=== PATIENT | female | born 1975 | race Caucasian/White ===

== ENCOUNTER 2020-04-19 13:20 | Emergency (ER) | payer BC, OTHER ==
--- NOTE | 2020-04-19 13:20 | EDM.PDOC ---
"ED HPI GENERAL MEDICAL PROBLEM - General Chief Complaint: Abdominal Pain Stated Complaint: AMBULANCE Time Seen by Provider: 04/19/20 13:20 Source of Information: Reports: Patient, EMS, Old Records, RN, RN Notes Reviewed History Limitations: Reports: No Limitations - History of Present Illness INITIAL COMMENTS - FREE TEXT/NARRATIVE: Pt arrives to ER by ambulance with c/o severe upper abdominal pain and vomiting. Pt states she went to clinic this past week for abdominal pain, but it was not nearly this bad. She understands the clinic found a mild elevation of her liver enzymes, low potassium, and constipation. Pt denies fever. The pain is all over the abdomen now, but seems to be worse and coming from the epigastric region. The pain radiates straight through to her back. She rates the pain 10/10. Nothing alleviates the pain. Eating makes the pain and nausea/vomiting much worse. She denies fever, cough, chest pain, or diarrhea. No known COVID exposures. Hx of , no other abdominal surgical history. Onset: Gradual Duration: Day(s): (3-4), Constant, Getting Worse, Waxing/Waning Location: Reports: Abdomen Quality: Reports: Ache Severity: Severe Associated Symptoms: Reports: No Other Symptoms Abdominal Pain Score (Numeric/FACES): 10 - Related Data Allergies Allergy/AdvReac Type Severity Reaction Status Date / Time amoxicillin Allergy Rash Verified 04/19/20 13:27 codeine Allergy Other Verified 04/19/20 13:27 Penicillins Allergy Rash Verified 04/19/20 13:27 prednisone Allergy Rash Verified 04/19/20 13:27 Home Meds: Home Meds Amphetamine Sulfate 30 mg PO DAILY 04/19/20 [History] Gabapentin [Neurontin] 100 mg PO BID 04/19/20 [History] Loratadine/Pseudoephedrine [Allergy Relief D 12-Hour Tab] 1 each PO DAILY 04/19/20 [History] Past Medical History HEENT History: Reports: Allergic Rhinitis Psychiatric History: Reports: Depression Endocrine/Metabolic History: Reports: Obesity/BMI 30+ Social & Family History - Family History Family Medical History: Noncontributory - Alcohol Use Alcohol Use History: Yes Alcohol Use Frequency: Rarely ED ROS GENERAL - Review of Systems Review Of Systems: Comprehensive ROS is negative, except as noted in HPI. ED EXAM, GI/ABD - Physical Exam Exam: See Below General Appearance: Alert, Mild Distress (due to pain), Obese Eyes: Bilateral: Normal Appearance (No scleral icterus.) Nose: Normal Inspection, Normal Mucosa, No Blood Throat/Mouth: Normal Inspection, Normal Lips, Normal Teeth, Normal Gums, Normal Oropharynx, Normal Voice, No Airway Compromise Head: Atraumatic, Normocephalic Neck: Normal Inspection, Supple, Non-Tender, Full Range of Motion Respiratory/Chest: No Respiratory Distress, Lungs Clear, Normal Breath Sounds, No Accessory Muscle Use, Chest Non-Tender Cardiovascular: Regular Rate, Rhythm, No Edema GI/Abdominal Exam: No Organomegaly, No Distention, No Abnormal Bruit, No Mass, Tender (Generalized tenderness, focally worse at epigastric region), Abnormal Bowel Sounds (Hypoactive bowel sounds.). No: Guarding, Rigid (firm, obese abdomen but not rigid.) (Female) Exam: Deferred Rectal (Female) Exam: Deferred Back Exam: Normal Inspection Extremities: Normal Inspection Neurological: Alert, Oriented, Normal Cognition, No Motor/Sensory Deficits Psychiatric: Anxious Skin Exam: Warm, Dry, Intact, Normal Color, No Rash. No: Ecchymosis, Jaundice, Petechiae, Rash Course - Vital Signs Last Recorded V/S: Last Vital Signs Temp 99 F 04/19/20 13:20 Pulse 118 H 04/19/20 13:20 Resp 20 04/19/20 13:20 BP 116/66 04/19/20 13:20 Pulse Ox 95 04/19/20 13:20 - Orders/Labs/Meds Orders: Active Orders 24 hr Category Date Time Status Peripheral IV Care [RC] . DIRECTED Care 04/19/20 13:25 Active Sodium Chloride 0.9% [Normal Saline] 1,000 ml Med 04/19/20 16:00 Active IV ASDIRECTED Sodium Chloride 0.9% [Saline Flush] Med 04/19/20 13:25 Active 10 ml FLUSH ASDIRECTED PRN Peripheral IV Insertion Pediatric [OM.PC] Stat Oth 04/19/20 13:25 Ordered Medication Orders Sodium Chloride (Normal Saline) 1,000 mls @ 150 mls/hr IV ASDIRECTED DIONICIO Sodium Chloride (Saline Flush) 10 ml FLUSH ASDIRECTED PRN PRN Reason: Keep Vein Open Last Admin: 04/19/20 13:38 Dose: 10 ml Documented by: WENDI Labs: Laboratory Tests 04/19/20 04/19/20 04/19/20 Range/Units 13:37 13:37 13:37 WBC 21.2 H (5.0-10.0) 10^3/uL RBC 4.55 (4.2-5.4) 10^6/uL Hgb 12.6 (12.0-16.0) g/dL Hct 38.4 (37.0-47.0) % MCV 84.4 (80-100) fL MCH 27.7 (27.0-34.0) pg MCHC 32.8 L (33.0-35.0) g/dL Plt Count 278 (150-450) 10^3/uL Neut % (Auto) 93.1 H (42.2-75.2) % Lymph % (Auto) 2.9 L (20.5-50.1) % [place] % (Auto) 3.9 (2-8) % Eos % (Auto) 0.0 L (1.0-3.0) % Baso % (Auto) 0.1 (0.0-1.0) % Sodium 138 (136-145) mmol/L Potassium 3.2 L (3.5-5.1) mmol/L Chloride 97 L (98-107) mmol/L Carbon Dioxide 29 (21-32) mmol/L Anion Gap 15.2 H (7-13) mEq/L BUN 8 (7-18) mg/dL Creatinine 0.80 (0.55-1.02) mg/dL Est Cr Clr Drug Dosing 70.98 mL/min Estimated GFR (MDRD) > 60 BUN/Creatinine Ratio 10.0 (No establ ref range) Glucose 121 H (74-99) mg/dL Lactic Acid 1.5 (0.4-2.0) mmol/L Calcium 9.1 (8.5-10.1) mg/dL Total Bilirubin 2.7 H (0.2-1.0) mg/dL AST 623 H (15-37) U/L ALT 419 H (14-59) U/L Alkaline Phosphatase 234 H (46-116) U/L Total Protein 7.3 (6.4-8.2) g/dL Albumin 3.5 (3.4-5.0) g/dL Globulin 3.8 Albumin/Globulin Ratio 0.9 Amylase 1088 H (25-115) U/L Lipase 50247 H (73-393) U/L HCG, Qual Negative Meds: Medications Generic Name Dose Route Start Last Admin Trade Name Richard PRN Reason Stop Dose Admin Sodium Chloride 1,000 mls @ 150 mls/hr 04/19/20 16:00 Normal Saline IV ASDIRECTED DIONICIO Sodium Chloride 10 ml 04/19/20 13:25 04/19/20 13:38 Saline Flush FLUSH 10 ml ASDIRECTED PRN Administration Keep Vein Open Discontinued Medications Generic Name Dose Route Start Last Admin Trade Name Freq PRN Reason Stop Dose Admin Hydromorphone HCl 1 mg 04/19/20 15:56 Dilaudid IVPUSH 04/19/20 15:57 ONETIME ONE Sodium Chloride 1,000 mls @ 999 mls/hr 04/19/20 13:26 04/19/20 15:09 Normal Saline IV 04/19/20 14:26 Infused .BOLUS ONE Infusion Ciprofloxacin/Dextrose 400 mg/ 200 mls @ 200 mls/hr 04/19/20 14:10 04/19/20 15:10 Premix IV 04/19/20 15:09 200 mls/hr ONETIME ONE Administration Metronidazole 500 mg/ Premix 100 mls @ 100 mls/hr 04/19/20 14:10 04/19/20 15:10 IV 04/19/20 15:09 100 mls/hr ONETIME ONE Administration Iopamidol 100 ml 04/19/20 14:08 04/19/20 15:06 Isovue-300 (61%) IVPUSH 04/19/20 14:09 100 ml ONETIME ONE Administration Ketorolac Tromethamine 30 mg 04/19/20 13:26 04/19/20 13:39 Toradol IVPUSH 04/19/20 13:27 30 mg ONETIME ONE Administration Ondansetron HCl 4 mg 04/19/20 13:26 04/19/20 13:39 Zofran IV 04/19/20 13:27 4 mg ONETIME ONE Administration Ondansetron HCl 4 mg 04/19/20 15:56 Zofran IV 04/19/20 15:57 ONETIME ONE - Radiology Interpretation Free Text/Narrative:: [facility] Final Radiology Report Call: [phone] assistance Online chat: [email or web address] Name: BEE MCMAHON Age: 44Years F Date: 04/19/2020 SSN: -- : [id number] Study: CT ABDOMEN PELVIS W CONT Requesting Physician: JAIR CINTRON Images: [id number] Addl Studies: Provided Clinical History: Generalized abdominal pain w/distention Contrast: With Contrast Medium: Isovue 300 Contrast Amount: 100 mL Contrast Method: Intravenous (IV) Page 1 of 2 PROCEDURE INFORMATION: Exam: CT Abdomen And Pelvis With Contrast Exam date and time: 04/19/2020 2:38 PM Age: 44 years old Clinical indication: Abdominal pain; Generalized; Additional info: Generalized abdominal pain w/distention TECHNIQUE: Imaging protocol: Computed tomography of the abdomen and pelvis with intravenous contrast. Radiation optimization: All CT scans at this facility use at least one of these dose optimization techniques: automated exposure control; mA and/or kV adjustment per patient size (includes targeted exams where dose is matched to clinical indication); or iterative reconstruction. Contrast material: ISOVUE 300; Contrast volume: 100 ml; Contrast route: INTRAVENOUS (IV); COMPARISON: No relevant prior studies available. FINDINGS: Liver: The liver demonstrates diffuse decreased attenuation compatible with fatty change. Gallbladder and bile ducts: Common bile duct appears to be mildly prominent measuring approximately 9 mm. No radiopaque stones are identified. Pancreas: There is moderate grade peripancreatic fat stranding with fluid extending along the lateral gutters bilaterally. Finding is compatible with moderate grade pancreatitis. No pseudocyst is currently identified. Spleen: Normal. No splenomegaly. Adrenal glands: Normal. No mass. Kidneys and ureters: Normal. No hydronephrosis. Stomach and bowel: Scattered colonic diverticula are present. There is no evidence for active diverticulitis. Appendix: No evidence of appendicitis. BEE MCMAHON | Final Radiology Report CONFIDENTIALITY STATEMENT This report is intended only for use by the referring physician, and only in accordance with law. If you received this in error, call [phone]. Page 2 of 2 Intraperitoneal space: Unremarkable. No free air. No significant fluid collection. Vasculature: Unremarkable. No abdominal aortic aneurysm. Lymph nodes: Unremarkable. No enlarged lymph nodes. Urinary bladder: Unremarkable as visualized. Reproductive: Unremarkable as visualized. Bones/joints: Unremarkable. No acute fracture. Soft tissues: Unremarkable. IMPRESSION: 1. Findings are compatible with moderate grade pancreatitis. 2. Mild enlargement of the common bile duct. No radiopaque stone identified. Thank you for allowing us to participate in the care of your patient. Dictated and Authenticated by: Dorian Loving MD 04/19/2020 3:13 PM Central Time ([place] & [place]) - Re-Assessments/Exams Free Text/Narrative Re-Assessment/Exam: 04/19/20 16:09 No US avail. in house at this time. Departure - Departure Time of Disposition: 15:46 Disposition: DC/Tfer to [facility] 02 Condition: Serious Clinical Impression: Elevated liver enzymes, Common bile duct dilatation Acute pancreatitis Qualifiers: Pancreatitis type: unspecified pancreatitis type Acute pancreatitis complication: unspecified Qualified Code(s): K85.90 - Acute pancreatitis without necrosis or infection, unspecified - Discharge Information *PRESCRIPTION DRUG MONITORING PROGRAM REVIEWED*: Not Applicable *COPY OF PRESCRIPTION DRUG MONITORING REPORT IN PATIENT KIMBERLY: Not Applicable Forms: ED Department Discharge, Interfacility Transfer EMTALA Sepsis Event Note (ED) - Focused Exam Vital Signs: Vital Signs Temp Pulse Resp BP Pulse Ox 04/19/20 13:20 99 F 118 H 20 116/66 95 - My Orders Last 24 Hours: My Active Orders 04/19/20 13:25 Peripheral IV Care [RC] . DIRECTED Sodium Chloride 0.9% [Saline Flush] 10 ml FLUSH ASDIRECTED PRN Peripheral IV Insertion Pediatric [OM.PC] Stat 04/19/20 16:00 Sodium Chloride 0.9% [Normal Saline] 1,000 ml IV ASDIRECTED - Assessment/Plan Last 24 Hours: My Active Orders 04/19/20 13:25 Peripheral IV Care [RC] . DIRECTED Sodium Chloride 0.9% [Saline Flush] 10 ml FLUSH ASDIRECTED PRN Peripheral IV Insertion Pediatric [OM.PC] Stat 04/19/20 16:00 Sodium Chloride 0.9% [Normal Saline] 1,000 ml IV ASDIRECTED"
[2020-04-19] MEDS ORDERED: Ondansetron 4 MG/2 ML SDV IV ONE ×2 (13:26→15:56)
[2020-04-19] MEDS ORDERED: Ketorolac 30 MG/ML SDV IVPUSH ONE (13:26)
[2020-04-19] MEDS ORDERED: Sodium Chloride 0.9% 1,000 ML IV ONE (13:26)
[2020-04-19] MEDS: Sodium Chloride 0.9% 10 ML Syringe FLUSH PRN ×2 (13:38→16:06)
[2020-04-19] MEDS ORDERED: Iopamidol 612 MG/ML 100 ML Bottle IVPUSH ONE (14:08)
[2020-04-19] MEDS ORDERED: Ciprofloxacin in D5W 400 MG in Premix Bag 1 BAG IV ONE ×2 (14:10)
[2020-04-19] MEDS ORDERED: metroNIDAZOLE/Normal Saline 500 MG in Premix Bag 100 BAG IV ONE (14:10)
[2020-04-19 14:11] LABS: ANION GAP 15.2 mEq/L (7-13); CHLORIDE,CL 97 mmol/L (98-107); SODIUM,NA 138 mmol/L (136-145)
--- NOTE | 2020-04-19 15:14 | CT ---
PROCEDURE INFORMATION: Exam: CT Abdomen And Pelvis With Contrast Exam date and time: 04/19/2020 2:38 PM Age: 44 years old Clinical indication: Abdominal pain; Generalized; Additional info: Generalized abdominal pain w/distention TECHNIQUE: Imaging protocol: Computed tomography of the abdomen and pelvis with intravenous contrast. Radiation optimization: All CT scans at this facility use at least one of these dose optimization techniques: automated exposure control; mA and/or kV adjustment per patient size (includes targeted exams where dose is matched to clinical indication); or iterative reconstruction. Contrast material: ISOVUE 300; Contrast volume: 100 ml; Contrast route: INTRAVENOUS (IV); COMPARISON: No relevant prior studies available. FINDINGS: Liver: The liver demonstrates diffuse decreased attenuation compatible with fatty change. Gallbladder and bile ducts: Common bile duct appears to be mildly prominent measuring approximately 9 mm. No radiopaque stones are identified. Pancreas: There is moderate grade peripancreatic fat stranding with fluid extending along the lateral gutters bilaterally. Finding is compatible with moderate grade pancreatitis. No pseudocyst is currently identified. Spleen: Normal. No splenomegaly. Adrenal glands: Normal. No mass. Kidneys and ureters: Normal. No hydronephrosis. Stomach and bowel: Scattered colonic diverticula are present. There is no evidence for active diverticulitis. Appendix: No evidence of appendicitis. Intraperitoneal space: Unremarkable. No free air. No significant fluid collection. Vasculature: Unremarkable. No abdominal aortic aneurysm. Lymph nodes: Unremarkable. No enlarged lymph nodes. Urinary bladder: Unremarkable as visualized. Reproductive: Unremarkable as visualized. Bones/joints: Unremarkable. No acute fracture. Soft tissues: Unremarkable. IMPRESSION: 1. Findings are compatible with moderate grade pancreatitis. 2. Mild enlargement of the common bile duct. No radiopaque stone identified.
[2020-04-19] MEDS ORDERED: HYDROmorphone 1 MG/ML Syringe IVPUSH ONE ×2 (15:56→17:54)
[2020-04-19] MEDS ORDERED: Sodium Chloride 0.9% 1,000 ML IV SCH (16:00)
== END 2020-04-19 18:24 ==
LOC: DL.ED 13:20
DX: K85.90 Acute pancreatitis without necrosis or infection, unspecified (principal); E66.9 Obesity, unspecified; Z68.41 Body mass index [BMI] 40.0-44.9, adult; R74.8 Abnormal levels of other serum enzymes; K83.8 Other specified diseases of biliary tract; Z88.5 Allergy status to narcotic agent; Z88.1 Allergy status to other antibiotic agents; Z88.8 Allergy status to other drugs, medicaments and biological substances; Z88.0 Allergy status to penicillin
CPT/HCPCS: 36415; 74177; 80053; 81001; 82150; 83605; 83690; 84703; 85025; 96365; 96368; 96375; 96376; 99283; 99285; J0744; J1170; J1885; J2405; J3490; J7030; Q9967

== ENCOUNTER 2021-03-22 13:57 | Emergency (ER) | payer BC ==
[2021-03-22] MEDS ORDERED: Sodium Chloride 0.9% 10 ML Syringe FLUSH PRN (16:01)
[2021-03-22] MEDS ORDERED: Sodium Chloride 0.9% 1,000 ML IV ONE (16:10)
[2021-03-22] MEDS ORDERED: Ondansetron 4 MG/2 ML SDV IVPUSH ONE ×2 (16:11→18:15)
[2021-03-22 16:50] LABS: ANION GAP 15.7 mEq/L (7-13); CHLORIDE,CL 104 mmol/L (98-107); SODIUM,NA 140 mmol/L (136-145)
[2021-03-22 17:52] LABS: CORONAVIRUS COVID-19 NAA POSITIVE (NEGATIVE)
--- NOTE | 2021-03-22 18:11 | EDM.PDOC ---
ED HPI GENERAL MEDICAL PROBLEM - General Chief Complaint: Gastrointestinal Problem Stated Complaint: VOMITING / FEVER Time Seen by Provider: 03/22/21 16:00 Source of Information: Reports: Patient History Limitations: Reports: No Limitations - History of Present Illness INITIAL COMMENTS - FREE TEXT/NARRATIVE: 45 y/o F Patient presents with a 2 day history of vomiting and a 5 day history of intermittent fevers. On arrival, patient nauseated and diaphoretic, 100 mL emesis. She states she has not been bale to keep anything down for the past several days. She denies vision prob, db, cp, abd pn, pelivc pn, diff voiding, extremity pn. Onset: Gradual Duration: Day(s): generalized Pain Score (Numeric/FACES): 8 - Related Data Allergies Allergy/AdvReac Type Severity Reaction Status Date / Time amoxicillin Allergy Rash Verified 03/22/21 15:49 codeine Allergy Other Verified 03/22/21 15:49 Penicillins Allergy Rash Verified 03/22/21 15:49 prednisone Allergy Rash Verified 03/22/21 15:49 Home Meds: Home Meds Amphetamine Sulfate 30 mg PO BID 04/19/20 [History] Gabapentin [Neurontin] 200 mg PO DAILY 04/19/20 [History] Loratadine/Pseudoephedrine [Allergy Relief D 12-Hour Tab] 1 each PO DAILY 04/19/20 [History] Vortioxetine Hydrobromide [Brintellix] 10 mg PO DAILY 03/22/21 [History] buPROPion HCL [Bupropion Xl] 300 mg PO DAILY 03/22/21 [History] Past Medical History HEENT History: Reports: Allergic Rhinitis Cardiovascular History: Reports: None Respiratory History: Reports: None Gastrointestinal History: Reports: None Genitourinary History: Reports: None B[employer]ING [employer]OL[employer] MACHINE History: Reports: Musculoskeletal History: Reports: None Neurological History: Reports: Neuropathy, Peripheral Psychiatric History: Reports: Anxiety, Depression Endocrine/Metabolic History: Reports: Obesity/BMI 30+ Hematologic History: Reports: None Immunologic History: Reports: None Oncologic (Cancer) History: Reports: None Dermatologic History: Reports: None - Infectious Disease History Infectious Disease History: Reports: None Social & Family History - Family History Family Medical History: No Pertinent Family History - Tobacco Use Tobacco Use Status *Q: Current Every Day Tobacco User Years of Tobacco use: 20 Packs/Tins Daily: 0.5 - Caffeine Use Caffeine Use: Reports: Coffee - Recreational Drug Use Recreational Drug Use: No ED ROS GENERAL - Review of Systems Review Of Systems: Comprehensive ROS is negative, except as noted in HPI. ED EXAM, GI/ABD - Physical Exam Exam: See Below Exam Limited By: No Limitations General Appearance: Alert, Other (appears dehydrated) Ears: Normal External Exam, Normal Canal, Hearing Grossly Normal, Normal TMs Nose: Normal Inspection, Normal Mucosa, No Blood Throat/Mouth: Normal Inspection, Normal Lips, Normal Teeth, Normal Gums, Normal Oropharynx, Normal Voice, No Airway Compromise Head: Atraumatic, Normocephalic Neck: Normal Inspection, Supple, Non-Tender, Full Range of Motion Respiratory/Chest: No Respiratory Distress, Lungs Clear, Normal Breath Sounds, No Accessory Muscle Use, Chest Non-Tender Cardiovascular: Normal Peripheral Pulses, Regular Rate, Rhythm, No Edema, No Gallop, No JVD, No Murmur, No Rub GI/Abdominal Exam: Normal Bowel Sounds, Soft, Non-Tender, No Organomegaly, No Distention, No Abnormal Bruit, No Mass, Pelvis Stable (Female) Exam: Deferred Rectal (Female) Exam: Deferred Back Exam: Normal Inspection, Full Range of Motion, NT Extremities: Normal Inspection, Normal Range of Motion, Non-Tender, Normal Capillary Refill, No Pedal Edema Neurological: Alert, Oriented, CN II-XII Intact, Normal Cognition, Normal Gait, Normal Reflexes, No Motor/Sensory Deficits Psychiatric: Normal Affect, Normal Mood Course - Vital Signs Last Recorded V/S: Last Vital Signs Temp 96.5 F L 03/22/21 15:41 Pulse 81 03/22/21 15:41 Resp 20 03/22/21 15:41 BP 104/65 03/22/21 15:41 Pulse Ox 95 03/22/21 15:41 - Orders/Labs/Meds Orders: Active Orders 24 hr Category Date Time Status Peripheral IV Care [RC] . DIRECTED Care 03/22/21 16:02 Active CULTURE BLOOD [BC] Stat Lab 03/22/21 16:06 Results CULTURE BLOOD [BC] Stat Lab 03/22/21 16:13 Results HCG QUALITATIVE,URINE [URCHEM] Stat Lab 03/22/21 16:02 Ordered UA RFX BART AND CULT IF INDIC [URIN] Stat Lab 03/22/21 16:02 Ordered Sodium Chloride 0.9% [Saline Flush] Med 03/22/21 16:01 Active 10 ml FLUSH ASDIRECTED PRN Blood Culture x2 Reflex Set [OM.PC] Stat Oth 03/22/21 16:01 Ordered Peripheral IV Insertion Adult [OM.PC] Stat Oth 03/22/21 16:02 Ordered Medication Orders Sodium Chloride (Sodium Chloride 0.9% 10 Ml Syringe) 10 ml FLUSH ASDIRECTED PRN PRN Reason: Keep Vein Open Last Admin: 03/22/21 16:49 Dose: 10 ml Documented by: XIN Labs: Laboratory Tests 03/22/21 03/22/21 03/22/21 Range/Units 16:13 16:13 16:13 WBC 3.1 L (5.0-10.0) 10^3/uL RBC 4.53 (4.2-5.4) 10^6/uL Hgb 12.5 (12.0-16.0) g/dL Hct 38.9 (37.0-47.0) % MCV 85.9 (80-100) fL MCH 27.6 (27.0-34.0) pg MCHC 32.1 L (33.0-35.0) g/dL Plt Count 138 L D (150-450) 10^3/uL Neut % (Auto) 51.7 (42.2-75.2) % Lymph % (Auto) 37.8 (20.5-50.1) % [place] % (Auto) 8.5 H (2-8) % Eos % (Auto) 2.0 (1.0-3.0) % Baso % (Auto) 0.0 (0.0-1.0) % Sodium 140 (136-145) mmol/L Potassium 3.7 (3.5-5.1) mmol/L Chloride 104 (98-107) mmol/L Carbon Dioxide 24 (21-32) mmol/L Anion Gap 15.7 H (7-13) mEq/L BUN 7 (7-18) mg/dL Creatinine 0.84 (0.55-1.02) mg/dL Est Cr Clr Drug Dosing 66.89 mL/min Estimated GFR (MDRD) > 60 BUN/Creatinine Ratio 8.3 (No establ ref range) Glucose 120 H (70-99) mg/dL Lactic Acid 0.9 (0.4-2.0) mmol/L Calcium 7.9 L (8.5-10.1) mg/dL Total Bilirubin 0.2 (0.2-1.0) mg/dL AST 45 H (15-37) U/L ALT 43 (14-59) U/L Alkaline Phosphatase 146 H (46-116) U/L C-Reactive Protein 0.9 (0.0-0.9) mg/dL Total Protein 7.2 (6.4-8.2) g/dL Albumin 3.4 (3.4-5.0) g/dL Globulin 3.8 Albumin/Globulin Ratio 0.9 Amylase 51 (25-115) U/L Lipase 161 (73-393) U/L Influenza Type A RNA (NEGATIVE) Influenza Type B RNA (NEGATIVE) SARS-CoV-2 RNA (JEFF) (NEGATIVE) 03/22/21 Range/Units 17:06 WBC (5.0-10.0) 10^3/uL RBC (4.2-5.4) 10^6/uL Hgb (12.0-16.0) g/dL Hct (37.0-47.0) % MCV (80-100) fL MCH (27.0-34.0) pg MCHC (33.0-35.0) g/dL Plt Count (150-450) 10^3/uL Neut % (Auto) (42.2-75.2) % Lymph % (Auto) (20.5-50.1) % [place] % (Auto) (2-8) % Eos % (Auto) (1.0-3.0) % Baso % (Auto) (0.0-1.0) % Sodium (136-145) mmol/L Potassium (3.5-5.1) mmol/L Chloride (98-107) mmol/L Carbon Dioxide (21-32) mmol/L Anion Gap (7-13) mEq/L BUN (7-18) mg/dL Creatinine (0.55-1.02) mg/dL Est Cr Clr Drug Dosing mL/min Estimated GFR (MDRD) BUN/Creatinine Ratio (No establ ref range) Glucose (70-99) mg/dL Lactic Acid (0.4-2.0) mmol/L Calcium (8.5-10.1) mg/dL Total Bilirubin (0.2-1.0) mg/dL AST (15-37) U/L ALT (14-59) U/L Alkaline Phosphatase (46-116) U/L C-Reactive Protein (0.0-0.9) mg/dL Total Protein (6.4-8.2) g/dL Albumin (3.4-5.0) g/dL Globulin Albumin/Globulin Ratio Amylase (25-115) U/L Lipase (73-393) U/L Influenza Type A RNA Negative (NEGATIVE) Influenza Type B RNA Negative (NEGATIVE) SARS-CoV-2 RNA (JEFF) Positive H (NEGATIVE) Meds: Medications Generic Name Dose Route Start Last Admin Trade Name Freq PRN Reason Stop Dose Admin Sodium Chloride 10 ml 03/22/21 16:01 03/22/21 16:49 Sodium Chloride 0.9% 10 Ml Syringe FLUSH 10 ml ASDIRECTED PRN Administration Keep Vein Open Discontinued Medications Generic Name Dose Route Start Last Admin Trade Name Freq PRN Reason Stop Dose Admin Sodium Chloride 1,000 mls @ 999 mls/hr 03/22/21 16:10 03/22/21 16:48 Normal Saline IV 03/22/21 17:10 999 mls/hr .BOLUS ONE Administration Ondansetron HCl 4 mg 03/22/21 16:11 03/22/21 16:48 Ondansetron 4 Mg/2 Ml Sdv IVPUSH 03/22/21 16:12 4 mg ONETIME ONE Administration Departure - Departure Time of Disposition: 18:09 Disposition: Home, Self-Care 01 Preliminary Cause of *Q: Cardiac Arrest Condition: Good Clinical Impression: COVID-19 - Discharge Information *PRESCRIPTION DRUG MONITORING PROGRAM REVIEWED*: Not Applicable *COPY OF PRESCRIPTION DRUG MONITORING REPORT IN PATIENT KIMBERLY: Not Applicable Instructions: 10 Things You Can Do to Manage Your COVID-19 Symptoms at Home - [facility] [place] (01/02/2021) Additional Instructions: RX: Zofran Isolate for 14 days from the onset of symptoms. Use tylenol and motrin for fever and pain as needed. If any new symptoms or concerns develop contact your primary care clinic or return to the ER. Sepsis Event Note (ED) - Focused Exam Vital Signs: Vital Signs Temp Pulse Resp BP Pulse Ox 03/22/21 15:41 96.5 F L 81 20 104/65 95
== END 2021-03-22 18:30 | disposition home or self-care (01) ==
LOC: DL.ED 13:57
DX: U07.1 COVID-19 (principal); G62.9 Polyneuropathy, unspecified; E66.9 Obesity, unspecified; Z72.0 Tobacco use; Z68.38 Body mass index [BMI] 38.0-38.9, adult; Z88.0 Allergy status to penicillin; Z88.5 Allergy status to narcotic agent; Z88.8 Allergy status to other drugs, medicaments and biological substances
CPT/HCPCS: 0240U; 36415; 80053; 81001; 81025; 82150; 83605; 83690; 85025; 86140; 87040; 96374; 99284; J2405; J7030

== ENCOUNTER 2021-03-25 14:25 | Inpatient (IN) | payer BC ==
[2021-03-25] MEDS ORDERED: Ondansetron 4 MG/2 ML SDV IV ONE (15:41)
[2021-03-25] MEDS ORDERED: Sodium Chloride 0.9% 10 ML Syringe FLUSH PRN (15:41)
[2021-03-25] MEDS ORDERED: Atropine/Diphenoxylate 0.025-2.5 MG Tab PO ONE (15:42)
[2021-03-25] MEDS ORDERED: Sodium Chloride 0.9% 1,000 ML IV ONE ×2 (15:42→17:21)
[2021-03-25] MEDS ORDERED: Morphine 4 MG/ML Syringe IVPUSH ONE (15:43)
[2021-03-25] MEDS ORDERED: Promethazine 25 MG/ML SDV IM ONE (16:32)
[2021-03-25 16:39] LABS: ANION GAP 11.2 mEq/L (7-13); CHLORIDE,CL 105 mmol/L (98-107); SODIUM,NA 141 mmol/L (136-145)
[2021-03-25] MEDS ORDERED: Magnesium Sulfate/Water 2 GM in Premix Bag 1 BAG IV ONE (17:19)
[2021-03-25] MEDS ORDERED: Potassium Chloride 10 MEQ in Premix Bag 1 BAG IV ONE (17:19)
[2021-03-25] MEDS ORDERED: Lidocaine 1% 30 ML SDV INJECT ONE (17:20)
[2021-03-25] MEDS ORDERED: Famotidine 20 MG/2 ML SDV IVPUSH ONE (17:21)
--- NOTE | 2021-03-25 17:45 | EDM.PDOC ---
Scribed by Kathie Diop 03/25/21 [id number] for Raad Rene MD ED HPI GENERAL MEDICAL PROBLEM - General Chief Complaint: Gastrointestinal Problem Stated Complaint: COVID - RETURN VISIT Time Seen by Provider: 03/25/21 15:30 Source of Information: Reports: Patient, RN, RN Notes Reviewed History Limitations: Reports: No Limitations - History of Present Illness INITIAL COMMENTS - FREE TEXT/NARRATIVE: Patient presents to ED by POV stating that she was diagnosed with COVID on 03/22/21. She presents with intractable nausea, vomiting and diarrhea, fevers, chills and generalized Body aches. Denies cough or chest pain. She has not been able to keep down her nausea medication or her chronic psychiatric medications. She has a history of pancreatitis, but has not had abdominal pain associated with the nausea and vomiting. Onset: Gradual Duration: Getting Worse Improves with: Reports: None Worsens with: Reports: Eating Associated Symptoms: Reports: No Other Symptoms Abdomen Pain Score (Numeric/FACES): 10 - Related Data Allergies Allergy/AdvReac Type Severity Reaction Status Date / Time amoxicillin Allergy Rash Verified 03/25/21 14:59 codeine Allergy Other Verified 03/25/21 14:59 Penicillins Allergy Rash Verified 03/25/21 14:59 prednisone Allergy Rash Verified 03/25/21 14:59 Home Meds: Home Meds Amphetamine Sulfate 30 mg PO BID 04/19/20 [History] Gabapentin [Neurontin] 200 mg PO DAILY 04/19/20 [History] Loratadine/Pseudoephedrine [Allergy Relief D 12-Hour Tab] 1 each PO DAILY 04/19/20 [History] Vortioxetine Hydrobromide [Brintellix] 10 mg PO DAILY 03/22/21 [History] buPROPion HCL [Bupropion Xl] 300 mg PO DAILY 03/22/21 [History] Past Medical History HEENT History: Reports: Allergic Rhinitis Cardiovascular History: Reports: None Respiratory History: Reports: None Gastrointestinal History: Reports: None Genitourinary History: Reports: None 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: Musculoskeletal History: Reports: None Neurological History: Reports: Neuropathy, Peripheral Psychiatric History: Reports: ADHD, Anxiety, Depression Endocrine/Metabolic History: Reports: Obesity/BMI 30+ Hematologic History: Reports: None Immunologic History: Reports: None Oncologic (Cancer) History: Reports: None Dermatologic History: Reports: None - Infectious Disease History Infectious Disease History: Reports: None Social & Family History - Family History Family Medical History: No Pertinent Family History - Tobacco Use Tobacco Use Status *Q: Current Every Day Tobacco User Years of Tobacco use: 20 Packs/Tins Daily: 1 - Caffeine Use Caffeine Use: Reports: Soda - Recreational Drug Use Recreational Drug Use: No - Living Situation & Occupation Living situation: Reports: with Family ED ROS GENERAL - Review of Systems Review Of Systems: Comprehensive ROS is negative, except as noted in HPI. ED EXAM, GI/ABD - Physical Exam Exam: See Below Exam Limited By: No Limitations General Appearance: Alert, No Apparent Distress, Obese, Other (Ill but non-toxic appearing) Eyes: Bilateral: Normal Appearance (No scleral icterus), EOMI Nose: Normal Inspection Throat/Mouth: Normal Lips, Normal Voice, No Airway Compromise, Other (Dry oral mucosa) Head: Atraumatic, Normocephalic Neck: Normal Inspection, Non-Tender, Full Range of Motion Respiratory/Chest: No Respiratory Distress, Lungs Clear, Normal Breath Sounds, No Accessory Muscle Use, Chest Non-Tender Cardiovascular: Normal Peripheral Pulses, Regular Rate, Rhythm, No Edema GI/Abdominal Exam: Soft, Non-Tender, No Distention, No Abnormal Bruit, No Mass, Pelvis Stable, Abnormal Bowel Sounds (Slightly hyperactive bowel sounds). No: Guarding, Rigid, Rebound (Female) Exam: Deferred Rectal (Female) Exam: Deferred Back Exam: Normal Inspection Extremities: Normal Inspection, Normal Range of Motion, Non-Tender, Normal Capillary Refill, No Pedal Edema Neurological: Alert, Oriented, CN II-XII Intact, Normal Cognition, No Motor/Sensory Deficits Psychiatric: Depressed Mood, Flat Affect Skin Exam: Warm, Dry, Intact, Normal Color, No Rash Course - Vital Signs Last Recorded V/S: Last Vital Signs Temp 95.1 F L 03/25/21 14:55 Pulse 73 03/25/21 14:55 Resp 14 03/25/21 14:55 BP 96/67 03/25/21 15:19 Pulse Ox 93 L 03/25/21 14:55 - Orders/Labs/Meds Orders: Active Orders 24 hr Category Date Time Status Peripheral IV Care [RC] . DIRECTED Care 03/25/21 15:41 Active Magnesium Sulfate/Water [Magnesium Sulfate in Water 2 Med 03/25/21 17:19 Active GM/50 ML] 2 gm Premix Bag 1 bag IV ONETIME Potassium Chloride [KCl in Water 10 MEQ/100 ML] 10 meq Med 03/25/21 17:19 Active Premix Bag 1 bag IV ONETIME Sodium Chloride 0.9% [Normal Saline] 1,000 ml Med 03/25/21 17:21 Active IV .BOLUS Sodium Chloride 0.9% [Saline Flush] Med 03/25/21 15:41 Active 10 ml FLUSH ASDIRECTED PRN Peripheral IV Insertion Adult [OM.PC] Stat Oth 03/25/21 15:41 Ordered Medication Orders Magnesium Sulfate 2 gm/ Premix 50 mls @ 25 mls/hr IV ONETIME ONE Stop: 03/25/21 19:18 Potassium Chloride 10 meq/ (Premix) 100 mls @ 100 mls/hr IV ONETIME ONE Stop: 03/25/21 18:18 Sodium Chloride (Normal Saline) 1,000 mls @ 999 mls/hr IV .BOLUS ONE Stop: 03/25/21 18:21 Sodium Chloride (Sodium Chloride 0.9% 10 Ml Syringe) 10 ml FLUSH ASDIRECTED PRN PRN Reason: Keep Vein Open Labs: Laboratory Tests 03/25/21 03/25/21 03/25/21 Range/Units 16:07 16:07 16:07 WBC 4.3 L (5.0-10.0) 10^3/uL RBC 4.40 (4.2-5.4) 10^6/uL Hgb 12.3 (12.0-16.0) g/dL Hct 37.5 (37.0-47.0) % MCV 85.2 (80-100) fL MCH 28.0 (27.0-34.0) pg MCHC 32.8 L (33.0-35.0) g/dL Plt Count 162 (150-450) 10^3/uL Neut % (Auto) 75.0 (42.2-75.2) % Lymph % (Auto) 20.4 L (20.5-50.1) % [place] % (Auto) 3.9 (2-8) % Eos % (Auto) 0.7 L (1.0-3.0) % Baso % (Auto) 0.0 (0.0-1.0) % Sodium 141 (136-145) mmol/L Potassium 3.2 L (3.5-5.1) mmol/L Chloride 105 (98-107) mmol/L Carbon Dioxide 28 (21-32) mmol/L Anion Gap 11.2 (7-13) mEq/L BUN 11 (7-18) mg/dL Creatinine 0.89 (0.55-1.02) mg/dL Est Cr Clr Drug Dosing 74.73 mL/min Estimated GFR (MDRD) > 60 BUN/Creatinine Ratio 12.4 (No establ ref range) Glucose 102 H (70-99) mg/dL Lactic Acid 1.0 (0.4-2.0) mmol/L Calcium 7.9 L (8.5-10.1) mg/dL Magnesium 1.6 L (1.8-2.4) mg/dL Total Bilirubin 0.2 (0.2-1.0) mg/dL AST 92 H (15-37) U/L ALT 77 H (14-59) U/L Alkaline Phosphatase 156 H (46-116) U/L C-Reactive Protein 3.9 H (0.0-0.9) mg/dL Total Protein 6.7 (6.4-8.2) g/dL Albumin 3.2 L (3.4-5.0) g/dL Globulin 3.5 Albumin/Globulin Ratio 0.91 Amylase 46 (25-115) U/L Lipase 115 (73-393) U/L Meds: Medications Generic Name Dose Route Start Last Admin Trade Name Freq PRN Reason Stop Dose Admin Magnesium Sulfate 2 gm/ Premix 50 mls @ 25 mls/hr 03/25/21 17:19 IV 03/25/21 19:18 ONETIME ONE Potassium Chloride 10 meq/ 100 mls @ 100 mls/hr 03/25/21 17:19 Premix IV 03/25/21 18:18 ONETIME ONE Sodium Chloride 1,000 mls @ 999 mls/hr 03/25/21 17:21 Normal Saline IV 03/25/21 18:21 .BOLUS ONE Sodium Chloride 10 ml 03/25/21 15:41 Sodium Chloride 0.9% 10 Ml Syringe FLUSH ASDIRECTED PRN Keep Vein Open Discontinued Medications Generic Name Dose Route Start Last Admin Trade Name Freq PRN Reason Stop Dose Admin Diphenoxylate HCl/Atropine 2 tab 03/25/21 15:42 03/25/21 17:23 Atropine/Diphenoxylate 0.025-2.5 Mg Tab PO 03/25/21 15:43 2 tab ONETIME ONE Administration Famotidine 20 mg 03/25/21 17:21 Famotidine 20 Mg/2 Ml Sdv IVPUSH 03/25/21 17:22 ONETIME ONE Sodium Chloride 1,000 mls @ 999 mls/hr 03/25/21 15:42 03/25/21 17:20 Normal Saline IV 03/25/21 16:42 999 mls/hr .BOLUS ONE Administration Lidocaine HCl 1 ml 03/25/21 17:20 Lidocaine 1% 30 Ml Sdv INJECT 03/25/21 17:21 ONETIME ONE Morphine Sulfate 4 mg 03/25/21 15:43 03/25/21 17:20 Morphine 4 Mg/Ml Syringe IVPUSH 03/25/21 15:44 4 mg ONETIME ONE Administration Ondansetron HCl 8 mg 03/25/21 15:41 03/25/21 17:22 Ondansetron 4 Mg/2 Ml Sdv IV 03/25/21 15:42 8 mg ONETIME ONE Administration Departure - Departure Time of Disposition: 17:44 (admitted to Dr. Franklin) Disposition: Refer to Observation Condition: Fair Clinical Impression: COVID-19 virus infection, Nausea, vomiting, and diarrhea, Dehydration, Hypomagnesemia, Hypokalemia - Discharge Information *PRESCRIPTION DRUG MONITORING PROGRAM REVIEWED*: No *COPY OF PRESCRIPTION DRUG MONITORING REPORT IN PATIENT KIMBERLY: No Forms: ED Department Discharge Sepsis Event Note (ED) - Focused Exam Vital Signs: Vital Signs Temp Pulse Resp BP Pulse Ox 03/25/21 15:19 96/67 03/25/21 14:55 95.1 F L 73 14 78/39 L 93 L - My Orders Last 24 Hours: My Active Orders 03/25/21 15:41 Peripheral IV Care [RC] . DIRECTED Sodium Chloride 0.9% [Saline Flush] 10 ml FLUSH ASDIRECTED PRN Peripheral IV Insertion Adult [OM.PC] Stat 03/25/21 17:19 Magnesium Sulfate/Water [Magnesium Sulfate in Water 2 GM/50 ML] 2 gm Premix Bag 1 bag IV ONETIME Potassium Chloride [KCl in Water 10 MEQ/100 ML] 10 meq Premix Bag 1 bag IV ONETIME 03/25/21 17:21 Sodium Chloride 0.9% [Normal Saline] 1,000 ml IV .BOLUS - Assessment/Plan Last 24 Hours: My Active Orders 03/25/21 15:41 Peripheral IV Care [RC] . DIRECTED Sodium Chloride 0.9% [Saline Flush] 10 ml FLUSH ASDIRECTED PRN Peripheral IV Insertion Adult [OM.PC] Stat 03/25/21 17:19 Magnesium Sulfate/Water [Magnesium Sulfate in Water 2 GM/50 ML] 2 gm Premix Bag 1 bag IV ONETIME Potassium Chloride [KCl in Water 10 MEQ/100 ML] 10 meq Premix Bag 1 bag IV ONETIME 03/25/21 17:21 Sodium Chloride 0.9% [Normal Saline] 1,000 ml IV .BOLUS I have read and agree with the documentation that has been completed regarding this visit. By signing this record, I attest that the documentation was completed in my physical presence and is an accurate record of the encounter.
--- NOTE | 2021-03-25 19:19 | PCM.HP ---
H&P History of Present Illness - General Date of Service: 03/25/21 Admit Problem/Dx: Admission Diagnosis/Problem Admission Diagnosis/Problem Vomiting Source of Information: Patient, Provider (ER) History Limitations: Reports: No Limitations - History of Present Illness Initial Comments - Free Text/Narative: Patient presents to ED stating that she was diagnosed with COVID on 03/22/21. She presents with intractable nausea, vomiting and diarrhea, fevers, chills and generalized Body aches. Denies cough or chest pain. She has not been able to keep down her nausea medication or her chronic psychiatric medications. She has a history of pancreatitis, but has not had abdominal pain associated with the nausea and vomiting. reports h/o cholecystectomy 2 weeks ago. Duration of Symptoms: Reports: Day(s): Abdomen Pain Score (Numeric/FACES): 10 - Related Data Allergies/Adverse Reactions: Allergies Allergy/AdvReac Type Severity Reaction Status Date / Time amoxicillin Allergy Rash Verified 03/25/21 14:59 codeine Allergy Other Verified 03/25/21 14:59 Penicillins Allergy Rash Verified 03/25/21 14:59 prednisone Allergy Rash Verified 03/25/21 14:59 Home Medications: Home Meds Amphetamine Sulfate 30 mg PO BID 04/19/20 [History] Gabapentin [Neurontin] 200 mg PO DAILY 04/19/20 [History] Loratadine/Pseudoephedrine [Allergy Relief D 12-Hour Tab] 1 each PO DAILY 04/19/20 [History] Vortioxetine Hydrobromide [Brintellix] 10 mg PO DAILY 03/22/21 [History] buPROPion HCL [Bupropion Xl] 300 mg PO DAILY 03/22/21 [History] Past Medical History HEENT History: Reports: Allergic Rhinitis Cardiovascular History: Reports: None Respiratory History: Reports: None Gastrointestinal History: Reports: None Genitourinary History: Reports: None 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: Musculoskeletal History: Reports: None Neurological History: Reports: Neuropathy, Peripheral Psychiatric History: Reports: ADHD, Anxiety, Depression Endocrine/Metabolic History: Reports: Obesity/BMI 30+ Hematologic History: Reports: None Immunologic History: Reports: None Oncologic (Cancer) History: Reports: None Dermatologic History: Reports: None - Infectious Disease History Infectious Disease History: Reports: None Social & Family History - Family History Family Medical History: No Pertinent Family History - Tobacco Use Tobacco Use Status *Q: Current Every Day Tobacco User Years of Tobacco use: 20 Packs/Tins Daily: 1 - Caffeine Use Caffeine Use: Reports: Soda - Recreational Drug Use Recreational Drug Use: No - Living Situation & Occupation Living situation: Reports: with Family H&P Review of Systems - Review of Systems: Review Of Systems: Comprehensive ROS is negative, except as noted in HPI. General: Reports: Fever, Chills HEENT: Reports: No Symptoms Pulmonary: Denies: Shortness of Breath, Cough Cardiovascular: Denies: Chest Pain Gastrointestinal: Reports: Diarrhea, Nausea, Vomiting. Denies: Abdominal Pain Skin: Reports: No Symptoms Psychiatric: Reports: No Symptoms Neurological: Reports: No Symptoms Hematologic/Lymphatic: Reports: No Symptoms Exam - Exam Exam: See Below - Vital Signs Vital Signs: Last Vital Signs Temp 95.1 F L 03/25/21 14:55 Pulse 73 03/25/21 14:55 Resp 14 03/25/21 14:55 BP 96/67 03/25/21 15:19 Pulse Ox 93 L 03/25/21 14:55 Weight: 210 lb - Exam Quality Assessment: No: Supplemental Oxygen General: Alert, Oriented HEENT: EOMI Lungs: Clear to Auscultation, Normal Respiratory Effort Cardiovascular: Regular Rate, Regular Rhythm GI/Abdominal Exam: Normal Bowel Sounds, Soft, Non-Tender Back Exam: Normal Inspection Extremities: No Pedal Edema Skin: Warm, Dry Neurological: Cranial Nerves Intact Neuro Extensive - Mental Status: Alert, Oriented x3 Neuro Extensive - Motor, Sensory, Reflexes: CN II-XII Intact Psychiatric: Alert, Normal Affect - Patient Data Lab Results Last 24 hrs: Laboratory Results - last 24 hr 03/25/21 03/25/21 03/25/21 Range/Units 16:07 16:07 16:07 WBC 4.3 L (5.0-10.0) 10^3/uL RBC 4.40 (4.2-5.4) 10^6/uL Hgb 12.3 (12.0-16.0) g/dL Hct 37.5 (37.0-47.0) % MCV 85.2 (80-100) fL MCH 28.0 (27.0-34.0) pg MCHC 32.8 L (33.0-35.0) g/dL Plt Count 162 (150-450) 10^3/uL Neut % (Auto) 75.0 (42.2-75.2) % Lymph % (Auto) 20.4 L (20.5-50.1) % [place] % (Auto) 3.9 (2-8) % Eos % (Auto) 0.7 L (1.0-3.0) % Baso % (Auto) 0.0 (0.0-1.0) % Sodium 141 (136-145) mmol/L Potassium 3.2 L (3.5-5.1) mmol/L Chloride 105 (98-107) mmol/L Carbon Dioxide 28 (21-32) mmol/L Anion Gap 11.2 (7-13) mEq/L BUN 11 (7-18) mg/dL Creatinine 0.89 (0.55-1.02) mg/dL Est Cr Clr Drug Dosing 74.73 mL/min Estimated GFR (MDRD) > 60 BUN/Creatinine Ratio 12.4 (No establ ref range) Glucose 102 H (70-99) mg/dL Lactic Acid 1.0 (0.4-2.0) mmol/L Calcium 7.9 L (8.5-10.1) mg/dL Magnesium 1.6 L (1.8-2.4) mg/dL Total Bilirubin 0.2 (0.2-1.0) mg/dL AST 92 H (15-37) U/L ALT 77 H (14-59) U/L Alkaline Phosphatase 156 H (46-116) U/L C-Reactive Protein 3.9 H (0.0-0.9) mg/dL Total Protein 6.7 (6.4-8.2) g/dL Albumin 3.2 L (3.4-5.0) g/dL Globulin 3.5 Albumin/Globulin Ratio 0.91 Amylase 46 (25-115) U/L Lipase 115 (73-393) U/L Result Diagrams: 03/25/21 16:07 03/25/21 16:07 Problem List Initiated/Reviewed/Updated: Yes Orders Last 24hrs: Active Orders 24 hr Category Date Time Status Admission Diagnosis [ADT] Stat ADT 03/25/21 17:51 Ordered Admission Status [Patient Status] [ADT] Routine ADT 03/25/21 17:51 Active Oxygen Therapy [RC] PRN Care 03/25/21 19:06 Ordered Up ad [place] [RC] ASDIRECTED Care 03/25/21 19:06 Ordered VTE/DVT Education [RC] PER UNIT ROUTINE Care 03/25/21 19:06 Ordered Vital Signs [RC] Q4H Care 03/25/21 19:06 Ordered Clear Liquid Diet [DIET] Diet 03/25/21 Dinner Ordered BASIC METABOLIC PANEL,BMP [CHEM] AM Lab 03/26/21 05:11 Ordered BASIC METABOLIC PANEL,BMP [CHEM] AM Lab 03/27/21 05:11 Ordered BASIC METABOLIC PANEL,BMP [CHEM] AM Lab 03/28/21 05:11 Ordered BASIC METABOLIC PANEL,BMP [CHEM] AM Lab 03/29/21 05:11 Ordered BASIC METABOLIC PANEL,BMP [CHEM] AM Lab 03/30/21 05:11 Ordered CBC WITH AUTO DIFF [HEME] AM Lab 03/26/21 05:11 Ordered CBC WITH AUTO DIFF [HEME] AM Lab 03/27/21 05:11 Ordered CBC WITH AUTO DIFF [HEME] AM Lab 03/28/21 05:11 Ordered CBC WITH AUTO DIFF [HEME] AM Lab 03/29/21 05:11 Ordered CBC WITH AUTO DIFF [HEME] AM Lab 03/30/21 05:11 Ordered Acetaminophen [TylenoL] Med 03/25/21 19:06 Ordered 650 mg PO Q4H PRN Amphetamine Sulfate [Amphetamine Sulfate] Med 03/25/21 21:00 Ordered 30 mg PO BID Enoxaparin [Lovenox] Med 03/25/21 19:15 Ordered 40 mg SUBCUT DAILY Gabapentin [Neurontin] Med 03/26/21 09:00 Ordered 200 mg PO DAILY Lactated Ringers @ 125 MLS/HR(1000ml) Med 03/25/21 19:15 Ordered Lactated Ringers [Ringers, Lactated] 1,000 ml IV ASDIRECTED Loperamide [Imodium] Med 03/25/21 19:10 Ordered 4 mg PO Q6H PRN Loratadine/Pseudoephedrine Med 03/26/21 09:00 Ordered 1 each PO DAILY Magnesium Sulfate/Water [Magnesium Sulfate in Water 2 Med 03/25/21 17:19 Active GM/50 ML] 2 gm Premix Bag 1 bag IV ONETIME Ondansetron [Zofran] Med 03/25/21 19:06 Ordered 4 mg IVPUSH Q6H PRN Sodium Chloride 0.9% [Saline Flush] Med 03/25/21 15:41 Active 10 ml FLUSH ASDIRECTED PRN Vortioxetine Hydrobromide [Trintellix] Med 03/26/21 09:00 Ordered 10 mg PO DAILY buPROPion HCL [Bupropion Xl] Med 03/26/21 09:00 Ordered 300 mg PO DAILY Peripheral IV Insertion Adult [OM.PC] Stat Oth 03/25/21 15:41 Ordered Resuscitation Status Routine Resus Stat 03/25/21 19:06 Ordered Medication Orders Acetaminophen (Acetaminophen 325 Mg Tab) 650 mg PO Q4H PRN PRN Reason: Pain (Mild 1-3)/fever Enoxaparin Sodium (Enoxaparin 40 Mg/0.4 Ml Syringe) 40 mg SUBCUT DAILY DIONICIO Gabapentin (Gabapentin 100 Mg Cap) 200 mg PO DAILY DIONICIO Magnesium Sulfate 2 gm/ Premix 50 mls @ 25 mls/hr IV ONETIME ONE Stop: 03/25/21 19:18 Lactated Ringer's (Ringers, Lactated) 1,000 mls @ 125 mls/hr IV ASDIRECTED DIONICIO Loperamide HCl (Loperamide 2 Mg Cap) 4 mg PO Q6H PRN PRN Reason: Diarrhea Non-Formulary Medication (Amphetamine Sulfate [Amphetamine Sulfate]) 30 mg PO BID DIONICIO Non-Formulary Medication (Bupropion Hcl [Bupropion Xl]) 300 mg PO DAILY DIONICIO Non-Formulary Medication (Loratadine/Pseudoephedrine) 1 each PO DAILY DIONICIO Non-Formulary Medication (Vortioxetine Hydrobromide [Trintellix]) 10 mg PO DAILY DIONICIO Ondansetron HCl (Ondansetron 4 Mg/2 Ml Sdv) 4 mg IVPUSH Q6H PRN PRN Reason: Nausea/Vomiting Sodium Chloride (Sodium Chloride 0.9% 10 Ml Syringe) 10 ml FLUSH ASDIRECTED PRN PRN Reason: Keep Vein Open Assessment/Plan Comment:: intractable symptoms of gastroenteritis due to COVID/ hypovolemia COVID: no respiratory symptoms. IVF fluid and supportive treatment. Depression? : continue home medications. Recent cholecystis; no active issues. DVT prophylaxis with Lovenox
[2021-03-25] MEDS: Enoxaparin 40 MG/0.4 ML Syringe SUBCUT SCH (19:37)
[2021-03-25] MEDS: Lactated Ringers 1,000 ML IV SCH (20:52)
[2021-03-25] MEDS ORDERED: Non-Formulary Medication 1 Each (Amphetamine Sulfate [Amphetamine Sulfate] 10 MG Tablet) PO SCH (21:00)
[2021-03-25] MEDS: Acetaminophen 325 MG Tab PO PRN (22:15)
[2021-03-26] MEDS: Acetaminophen 325 MG Tab PO PRN ×3 (05:02→20:41)
[2021-03-26] MEDS: Lactated Ringers 1,000 ML IV SCH ×3 (05:05→22:00)
[2021-03-26] MEDS: Ondansetron 4 MG/2 ML SDV IVPUSH PRN ×3 (05:06→20:43)
[2021-03-26] MEDS ORDERED: Ibuprofen 400 MG Tab PO PRN (05:19)
[2021-03-26 06:57] LABS: ANION GAP 14.1 mEq/L (7-13); CHLORIDE,CL 103 mmol/L (98-107); SODIUM,NA 138 mmol/L (136-145)
[2021-03-26] MEDS: Enoxaparin 40 MG/0.4 ML Syringe SUBCUT SCH (08:28)
[2021-03-26] MEDS: Gabapentin 100 MG Cap PO SCH (08:28)
[2021-03-26] MEDS: buPROPion 150 MG Tab.ER PO SCH (08:28)
[2021-03-26] MEDS ORDERED: LORATADINE PO SCH (09:00)
[2021-03-26] MEDS ORDERED: Potassium Chloride 10 MEQ Tab.ER PO ONE (09:00)
[2021-03-26] MEDS ORDERED: PSEUDOEPHEDRINE PO SCH (09:00)
[2021-03-26] MEDS: Loperamide 2 MG Cap PO PRN (09:29)
--- NOTE | 2021-03-26 11:38 | PCM.PN ---
- General Info Date of Service: 03/26/21 Functional Status: Denies: Tolerating Diet - Review of Systems General: Denies: Fever Pulmonary: Denies: Shortness of Breath Gastrointestinal: Reports: Diarrhea, Nausea. Denies: Abdominal Pain Genitourinary: Denies: Dysuria Skin: Reports: No Symptoms Neurological: Reports: No Symptoms - Patient Data Vitals - Most Recent: Last Vital Signs Temp 97.7 F 03/26/21 08:00 Pulse 70 03/26/21 08:00 Resp 18 03/26/21 08:00 BP 98/54 L 03/26/21 08:00 Pulse Ox 93 L 03/26/21 08:00 Weight - Most Recent: 210 lb I&O - Last 24 Hours: Intake & Output 03/25/21 03/26/21 03/26/21 22:59 06:59 14:59 Intake Total 400 3585 325 Balance 400 3585 325 Lab Results Last 24 Hours: Laboratory Results - last 24 hr 03/25/21 03/25/21 03/25/21 Range/Units 16:07 16:07 16:07 WBC 4.3 L (5.0-10.0) 10^3/uL RBC 4.40 (4.2-5.4) 10^6/uL Hgb 12.3 (12.0-16.0) g/dL Hct 37.5 (37.0-47.0) % MCV 85.2 (80-100) fL MCH 28.0 (27.0-34.0) pg MCHC 32.8 L (33.0-35.0) g/dL Plt Count 162 (150-450) 10^3/uL Neut % (Auto) 75.0 (42.2-75.2) % Lymph % (Auto) 20.4 L (20.5-50.1) % Dickey % (Auto) 3.9 (2-8) % Eos % (Auto) 0.7 L (1.0-3.0) % Baso % (Auto) 0.0 (0.0-1.0) % Sodium 141 (136-145) mmol/L Potassium 3.2 L (3.5-5.1) mmol/L Chloride 105 (98-107) mmol/L Carbon Dioxide 28 (21-32) mmol/L Anion Gap 11.2 (7-13) mEq/L BUN 11 (7-18) mg/dL Creatinine 0.89 (0.55-1.02) mg/dL Est Cr Clr Drug Dosing 74.73 mL/min Estimated GFR (MDRD) > 60 BUN/Creatinine Ratio 12.4 (No establ ref range) Glucose 102 H (70-99) mg/dL Lactic Acid 1.0 (0.4-2.0) mmol/L Calcium 7.9 L (8.5-10.1) mg/dL Magnesium 1.6 L (1.8-2.4) mg/dL Total Bilirubin 0.2 (0.2-1.0) mg/dL AST 92 H (15-37) U/L ALT 77 H (14-59) U/L Alkaline Phosphatase 156 H (46-116) U/L C-Reactive Protein 3.9 H (0.0-0.9) mg/dL Total Protein 6.7 (6.4-8.2) g/dL Albumin 3.2 L (3.4-5.0) g/dL Globulin 3.5 Albumin/Globulin Ratio 0.91 Amylase 46 (25-115) U/L Lipase 115 (73-393) U/L 03/26/21 03/26/21 Range/Units 06:20 06:20 WBC 3.7 L (5.0-10.0) 10^3/uL RBC 3.66 L (4.2-5.4) 10^6/uL Hgb 10.1 L D (12.0-16.0) g/dL Hct 31.3 L (37.0-47.0) % MCV 85.5 (80-100) fL MCH 27.6 (27.0-34.0) pg MCHC 32.3 L (33.0-35.0) g/dL Plt Count 161 (150-450) 10^3/uL Neut % (Auto) 58.0 (42.2-75.2) % Lymph % (Auto) 33.2 (20.5-50.1) % Dickey % (Auto) 8.3 H (2-8) % Eos % (Auto) 0.5 L (1.0-3.0) % Baso % (Auto) 0.0 (0.0-1.0) % Sodium 138 (136-145) mmol/L Potassium 3.1 L (3.5-5.1) mmol/L Chloride 103 (98-107) mmol/L Carbon Dioxide 24 (21-32) mmol/L Anion Gap 14.1 H (7-13) mEq/L BUN 8 (7-18) mg/dL Creatinine 0.66 (0.55-1.02) mg/dL Est Cr Clr Drug Dosing 100.77 mL/min Estimated GFR (MDRD) > 60 BUN/Creatinine Ratio (No establ ref range) Glucose 97 (70-99) mg/dL Lactic Acid (0.4-2.0) mmol/L Calcium 7.2 L (8.5-10.1) mg/dL Magnesium (1.8-2.4) mg/dL Total Bilirubin (0.2-1.0) mg/dL AST (15-37) U/L ALT (14-59) U/L Alkaline Phosphatase (46-116) U/L C-Reactive Protein (0.0-0.9) mg/dL Total Protein (6.4-8.2) g/dL Albumin (3.4-5.0) g/dL Globulin Albumin/Globulin Ratio Amylase (25-115) U/L Lipase (73-393) U/L Med Orders - Current: Current Medications Acetaminophen (Acetaminophen 325 Mg Tab) 650 mg PO Q4H PRN PRN Reason: Pain (Mild 1-3)/fever Last Admin: 03/26/21 09:37 Dose: 650 mg Documented by: Bupropion HCl (Bupropion 150 Mg Tab.Er) 300 mg PO DAILY [facility] Last Admin: 03/26/21 08:28 Dose: 300 mg Documented by: Enoxaparin Sodium (Enoxaparin 40 Mg/0.4 Ml Syringe) 40 mg SUBCUT DAILY [facility] Last Admin: 03/26/21 08:28 Dose: 40 mg Documented by: Gabapentin (Gabapentin 100 Mg Cap) 200 mg PO DAILY [facility] Last Admin: 03/26/21 08:28 Dose: 200 mg Documented by: Lactated Ringer's (Ringers, Lactated) 1,000 mls @ 125 mls/hr IV ASDIRECTED [facility] Last Admin: 03/26/21 05:05 Dose: 125 mls/hr Documented by: Ibuprofen (Ibuprofen 400 Mg Tab) 400 mg PO Q4H PRN PRN Reason: Pain Loperamide HCl (Loperamide 2 Mg Cap) 4 mg PO Q6H PRN PRN Reason: Diarrhea Last Admin: 03/26/21 09:29 Dose: 4 mg Documented by: Morphine Sulfate (Morphine 4 Mg/Ml Syringe) 4 mg IVPUSH Q6H PRN PRN Reason: Pain (severe 7-10) Non-Formulary Medication (Amphetamine Sulfate [Amphetamine Sulfate]) 30 mg PO BID DIONICIO Non-Formulary Medication (Loratadine/Pseudoephedrine) 1 each PO DAILY DIONICIO Non-Formulary Medication (Vortioxetine Hydrobromide [Trintellix]) 10 mg PO DAILY [facility] Ondansetron HCl (Ondansetron 4 Mg/2 Ml Sdv) 4 mg IVPUSH Q6H PRN PRN Reason: Nausea/Vomiting Last Admin: 03/26/21 05:06 Dose: 4 mg Documented by: Sodium Chloride (Sodium Chloride 0.9% 10 Ml Syringe) 10 ml FLUSH ASDIRECTED PRN PRN Reason: Keep Vein Open Discontinued Medications Diphenoxylate HCl/Atropine (Atropine/Diphenoxylate 0.025-2.5 Mg Tab) 2 tab PO ONETIME ONE Stop: 03/25/21 15:43 Last Admin: 03/25/21 17:23 Dose: 2 tab Documented by: Famotidine (Famotidine 20 Mg/2 Ml Sdv) 20 mg IVPUSH ONETIME ONE Stop: 03/25/21 17:22 Last Admin: 03/25/21 18:00 Dose: 20 mg Documented by: Sodium Chloride (Normal Saline) 1,000 mls @ 999 mls/hr IV .BOLUS ONE Stop: 03/25/21 16:42 Last Admin: 03/25/21 17:20 Dose: 999 mls/hr Documented by: Magnesium Sulfate 2 gm/ Premix 50 mls @ 25 mls/hr IV ONETIME ONE Stop: 03/25/21 19:18 Last Admin: 03/25/21 19:33 Dose: 25 mls/hr Documented by: Potassium Chloride 10 meq/ (Premix) 100 mls @ 100 mls/hr IV ONETIME ONE Stop: 03/25/21 18:18 Last Admin: 03/25/21 22:14 Dose: 100 mls/hr Documented by: Sodium Chloride (Normal Saline) 1,000 mls @ 999 mls/hr IV .BOLUS ONE Stop: 03/25/21 18:21 Last Admin: 03/25/21 19:33 Dose: 999 mls/hr Documented by: Lidocaine HCl (Lidocaine 1% 30 Ml Sdv) 1 ml INJECT ONETIME ONE Stop: 03/25/21 17:21 Last Admin: 03/25/21 22:14 Dose: 1 ml Documented by: Morphine Sulfate (Morphine 4 Mg/Ml Syringe) 4 mg IVPUSH ONETIME ONE Stop: 03/25/21 15:44 Last Admin: 03/25/21 17:20 Dose: 4 mg Documented by: Ondansetron HCl (Ondansetron 4 Mg/2 Ml Sdv) 8 mg IV ONETIME ONE Stop: 03/25/21 15:42 Last Admin: 03/25/21 17:22 Dose: 8 mg Documented by: Potassium Chloride (Potassium Chloride 10 Meq Tab.Er) 40 meq PO ONETIME ONE Stop: 03/26/21 09:01 Last Admin: 03/26/21 09:32 Dose: 40 meq Documented by: - Exam Quality Assessment: No: Supplemental Oxygen General: Alert, Oriented HEENT: EOMI Neck: Supple Extremities: Normal Inspection Skin: Warm Neurological: No New Focal Deficit Psy/Mental Status: Alert, Normal Affect - Patient Data Lab Results Last 24 hrs: Laboratory Results - last 24 hr 03/25/21 03/25/21 03/25/21 Range/Units 16:07 16:07 16:07 WBC 4.3 L (5.0-10.0) 10^3/uL RBC 4.40 (4.2-5.4) 10^6/uL Hgb 12.3 (12.0-16.0) g/dL Hct 37.5 (37.0-47.0) % MCV 85.2 (80-100) fL MCH 28.0 (27.0-34.0) pg MCHC 32.8 L (33.0-35.0) g/dL Plt Count 162 (150-450) 10^3/uL Neut % (Auto) 75.0 (42.2-75.2) % Lymph % (Auto) 20.4 L (20.5-50.1) % Dickey % (Auto) 3.9 (2-8) % Eos % (Auto) 0.7 L (1.0-3.0) % Baso % (Auto) 0.0 (0.0-1.0) % Sodium 141 (136-145) mmol/L Potassium 3.2 L (3.5-5.1) mmol/L Chloride 105 (98-107) mmol/L Carbon Dioxide 28 (21-32) mmol/L Anion Gap 11.2 (7-13) mEq/L BUN 11 (7-18) mg/dL Creatinine 0.89 (0.55-1.02) mg/dL Est Cr Clr Drug Dosing 74.73 mL/min Estimated GFR (MDRD) > 60 BUN/Creatinine Ratio 12.4 (No establ ref range) Glucose 102 H (70-99) mg/dL Lactic Acid 1.0 (0.4-2.0) mmol/L Calcium 7.9 L (8.5-10.1) mg/dL Magnesium 1.6 L (1.8-2.4) mg/dL Total Bilirubin 0.2 (0.2-1.0) mg/dL AST 92 H (15-37) U/L ALT 77 H (14-59) U/L Alkaline Phosphatase 156 H (46-116) U/L C-Reactive Protein 3.9 H (0.0-0.9) mg/dL Total Protein 6.7 (6.4-8.2) g/dL Albumin 3.2 L (3.4-5.0) g/dL Globulin 3.5 Albumin/Globulin Ratio 0.91 Amylase 46 (25-115) U/L Lipase 115 (73-393) U/L 03/26/21 03/26/21 Range/Units 06:20 06:20 WBC 3.7 L (5.0-10.0) 10^3/uL RBC 3.66 L (4.2-5.4) 10^6/uL Hgb 10.1 L D (12.0-16.0) g/dL Hct 31.3 L (37.0-47.0) % MCV 85.5 (80-100) fL MCH 27.6 (27.0-34.0) pg MCHC 32.3 L (33.0-35.0) g/dL Plt Count 161 (150-450) 10^3/uL Neut % (Auto) 58.0 (42.2-75.2) % Lymph % (Auto) 33.2 (20.5-50.1) % Dickey % (Auto) 8.3 H (2-8) % Eos % (Auto) 0.5 L (1.0-3.0) % Baso % (Auto) 0.0 (0.0-1.0) % Sodium 138 (136-145) mmol/L Potassium 3.1 L (3.5-5.1) mmol/L Chloride 103 (98-107) mmol/L Carbon Dioxide 24 (21-32) mmol/L Anion Gap 14.1 H (7-13) mEq/L BUN 8 (7-18) mg/dL Creatinine 0.66 (0.55-1.02) mg/dL Est Cr Clr Drug Dosing 100.77 mL/min Estimated GFR (MDRD) > 60 BUN/Creatinine Ratio (No establ ref range) Glucose 97 (70-99) mg/dL Lactic Acid (0.4-2.0) mmol/L Calcium 7.2 L (8.5-10.1) mg/dL Magnesium (1.8-2.4) mg/dL Total Bilirubin (0.2-1.0) mg/dL AST (15-37) U/L ALT (14-59) U/L Alkaline Phosphatase (46-116) U/L C-Reactive Protein (0.0-0.9) mg/dL Total Protein (6.4-8.2) g/dL Albumin (3.4-5.0) g/dL Globulin Albumin/Globulin Ratio Amylase (25-115) U/L Lipase (73-393) U/L Result Diagrams: 03/26/21 06:20 03/26/21 06:20 Sepsis Event Note - Evaluation Sepsis Screening Result: No Definite Risk - Focused Exam Vital Signs: Vital Signs Temp Pulse Resp BP Pulse Ox 03/26/21 08:00 97.7 F 70 18 98/54 L 93 L 03/26/21 04:00 97.7 F 83 20 105/51 L 94 L 03/26/21 00:00 98.7 F 73 16 97/58 L 96 - Problem List Review Problem List Initiated/Reviewed/Updated: No - My Orders Last 24 Hours: My Active Orders 03/25/21 Dinner Clear Liquid Diet [DIET] 03/25/21 19:06 Oxygen Therapy [RC] PRN Up ad [place] [RC] ASDIRECTED VTE/DVT Education [RC] Vital Signs [RC] Q4H Acetaminophen [TylenoL] 650 mg PO Q4H PRN Ondansetron [Zofran] 4 mg IVPUSH Q6H PRN Resuscitation Status Routine 03/25/21 19:10 Loperamide [Imodium] 4 mg PO Q6H PRN 03/25/21 19:15 Enoxaparin [Lovenox] 40 mg SUBCUT DAILY Lactated Ringers [Ringers, Lactated] 1,000 ml IV ASDIRECTED 03/25/21 21:00 Amphetamine Sulfate [Amphetamine Sulfate] 30 mg PO BID 03/26/21 05:19 Ibuprofen [Motrin] 400 mg PO Q4H PRN 03/26/21 09:00 Gabapentin [Neurontin] 200 mg PO DAILY Loratadine/Pseudoephedrine 1 each PO DAILY Vortioxetine Hydrobromide [Trintellix] 10 mg PO DAILY buPROPion [Wellbutrin XL] 300 mg PO DAILY 03/26/21 09:45 Morphine 4 mg IVPUSH Q6H PRN 03/27/21 05:11 BASIC METABOLIC PANEL,BMP [CHEM] AM CBC WITH AUTO DIFF [HEME] AM 03/28/21 05:11 BASIC METABOLIC PANEL,BMP [CHEM] AM CBC WITH AUTO DIFF [HEME] AM 03/29/21 05:11 BASIC METABOLIC PANEL,BMP [CHEM] AM CBC WITH AUTO DIFF [HEME] AM 03/30/21 05:11 BASIC METABOLIC PANEL,BMP [CHEM] AM CBC WITH AUTO DIFF [HEME] AM - Plan Plan:: intractable symptoms of gastroenteritis due to COVID/ hypovolemia COVID: no respiratory symptoms. IVF fluid and supportive treatment. Depression? : continue home medications. Recent cholecystis; no active issues. DVT prophylaxis with Lovenox
[2021-03-26] MEDS: Morphine 4 MG/ML Syringe IVPUSH PRN (14:39)
[2021-03-26] MEDS: Promethazine 25 MG/ML SDV IM PRN (17:10)
[2021-03-27] MEDS: Morphine 4 MG/ML Syringe IVPUSH PRN (00:17)
[2021-03-27] MEDS: Loperamide 2 MG Cap PO PRN ×2 (02:13→11:00)
[2021-03-27] MEDS: Lactated Ringers 1,000 ML IV SCH ×2 (06:19→15:53)
[2021-03-27 07:14] LABS: ANION GAP 10.1 mEq/L (7-13); CHLORIDE,CL 106 mmol/L (98-107); SODIUM,NA 141 mmol/L (136-145)
[2021-03-27] MEDS: Gabapentin 100 MG Cap PO SCH ×2 (08:24→15:56)
[2021-03-27] MEDS: Potassium Chloride 10 MEQ Tab.ER PO SCH (08:24)
[2021-03-27] MEDS: buPROPion 150 MG Tab.ER PO SCH ×2 (08:24→15:57)
[2021-03-27] MEDS: Ondansetron 4 MG/2 ML SDV IVPUSH PRN (08:26)
[2021-03-27] MEDS: Enoxaparin 40 MG/0.4 ML Syringe SUBCUT SCH (08:28)
--- NOTE | 2021-03-27 10:28 | PCM.PN ---
- General Info Date of Service: 03/27/21 Subjective Update: Still not feeling well. Vomited yesterday. had SAENZ ( better now). still with diarrhea. Functional Status: Denies: Tolerating Diet - Review of Systems General: Denies: Fever Pulmonary: Reports: Cough. Denies: Shortness of Breath Cardiovascular: Denies: Chest Pain Gastrointestinal: Reports: Diarrhea, Vomiting. Denies: Abdominal Pain Skin: Reports: No Symptoms Neurological: Reports: No Symptoms Psychiatric: Reports: No Symptoms - Patient Data Vitals - Most Recent: Last Vital Signs Temp 97.1 F 03/27/21 07:00 Pulse 76 03/27/21 07:00 Resp 18 03/27/21 07:00 BP 107/88 03/27/21 07:00 Pulse Ox 92 L 03/27/21 07:00 Weight - Most Recent: 216 lb 12.8 oz I&O - Last 24 Hours: Intake & Output 03/26/21 03/27/21 03/27/21 22:59 06:59 14:59 Intake Total 120 60 Balance 120 60 Lab Results Last 24 Hours: Laboratory Results - last 24 hr 03/27/21 03/27/21 Range/Units 06:40 06:40 WBC 3.6 L (5.0-10.0) 10^3/uL RBC 3.64 L (4.2-5.4) 10^6/uL Hgb 9.9 L (12.0-16.0) g/dL Hct 31.3 L (37.0-47.0) % MCV 86.0 (80-100) fL MCH 27.2 (27.0-34.0) pg MCHC 31.6 L (33.0-35.0) g/dL Plt Count 177 (150-450) 10^3/uL Neut % (Auto) 44.3 (42.2-75.2) % Lymph % (Auto) 45.7 (20.5-50.1) % Johnston % (Auto) 8.3 H (2-8) % Eos % (Auto) 1.7 (1.0-3.0) % Baso % (Auto) 0.0 (0.0-1.0) % Sodium 141 (136-145) mmol/L Potassium 3.1 L (3.5-5.1) mmol/L Chloride 106 (98-107) mmol/L Carbon Dioxide 28 (21-32) mmol/L Anion Gap 10.1 (7-13) mEq/L BUN 7 (7-18) mg/dL Creatinine 0.58 (0.55-1.02) mg/dL Est Cr Clr Drug Dosing 114.67 mL/min Estimated GFR (MDRD) > 60 Glucose 88 (70-99) mg/dL Calcium 7.7 L (8.5-10.1) mg/dL Med Orders - Current: Current Medications Acetaminophen (Acetaminophen 325 Mg Tab) 650 mg PO Q4H PRN PRN Reason: Pain (Mild 1-3)/fever Last Admin: 03/26/21 20:41 Dose: 650 mg Documented by: Bupropion HCl (Bupropion 150 Mg Tab.Er) 300 mg PO DAILY [facility] Last Admin: 03/27/21 08:24 Dose: 300 mg Documented by: Enoxaparin Sodium (Enoxaparin 40 Mg/0.4 Ml Syringe) 40 mg SUBCUT DAILY [facility] Last Admin: 03/27/21 08:28 Dose: 40 mg Documented by: Gabapentin (Gabapentin 100 Mg Cap) 200 mg PO DAILY [facility] Last Admin: 03/27/21 08:24 Dose: 200 mg Documented by: Lactated Ringer's (Ringers, Lactated) 1,000 mls @ 75 mls/hr IV ASDIRECTED [facility] Last Admin: 03/27/21 06:19 Dose: 125 mls/hr Documented by: Ibuprofen (Ibuprofen 400 Mg Tab) 400 mg PO Q4H PRN PRN Reason: Pain Loperamide HCl (Loperamide 2 Mg Cap) 4 mg PO Q6H PRN PRN Reason: Diarrhea Last Admin: 03/27/21 02:13 Dose: 4 mg Documented by: Morphine Sulfate (Morphine 4 Mg/Ml Syringe) 4 mg IVPUSH Q6H PRN PRN Reason: Pain (severe 7-10) Last Admin: 03/27/21 00:17 Dose: 4 mg Documented by: Ondansetron HCl (Ondansetron 4 Mg/2 Ml Sdv) 4 mg IVPUSH Q6H PRN PRN Reason: Nausea/Vomiting Last Admin: 03/27/21 08:26 Dose: 4 mg Documented by: Potassium Chloride (Potassium Chloride 10 Meq Tab.Er) 40 meq PO DAILY [facility] Last Admin: 03/27/21 08:24 Dose: 40 meq Documented by: Promethazine HCl (Promethazine 25 Mg/Ml Sdv) 12.5 mg IM Q6H PRN PRN Reason: Nausea Last Admin: 03/26/21 17:10 Dose: 12.5 mg Documented by: Sodium Chloride (Sodium Chloride 0.9% 10 Ml Syringe) 10 ml FLUSH ASDIRECTED PRN PRN Reason: Keep Vein Open Discontinued Medications Diphenoxylate HCl/Atropine (Atropine/Diphenoxylate 0.025-2.5 Mg Tab) 2 tab PO ONETIME ONE Stop: 03/25/21 15:43 Last Admin: 03/25/21 17:23 Dose: 2 tab Documented by: Famotidine (Famotidine 20 Mg/2 Ml Sdv) 20 mg IVPUSH ONETIME ONE Stop: 03/25/21 17:22 Last Admin: 03/25/21 18:00 Dose: 20 mg Documented by: Sodium Chloride (Normal Saline) 1,000 mls @ 999 mls/hr IV .BOLUS ONE Stop: 03/25/21 16:42 Last Admin: 03/25/21 17:20 Dose: 999 mls/hr Documented by: Magnesium Sulfate 2 gm/ Premix 50 mls @ 25 mls/hr IV ONETIME ONE Stop: 03/25/21 19:18 Last Admin: 03/25/21 19:33 Dose: 25 mls/hr Documented by: Potassium Chloride 10 meq/ (Premix) 100 mls @ 100 mls/hr IV ONETIME ONE Stop: 03/25/21 18:18 Last Admin: 03/25/21 22:14 Dose: 100 mls/hr Documented by: Sodium Chloride (Normal Saline) 1,000 mls @ 999 mls/hr IV .BOLUS ONE Stop: 03/25/21 18:21 Last Admin: 03/25/21 19:33 Dose: 999 mls/hr Documented by: Lidocaine HCl (Lidocaine 1% 30 Ml Sdv) 1 ml INJECT ONETIME ONE Stop: 03/25/21 17:21 Last Admin: 03/25/21 22:14 Dose: 1 ml Documented by: Morphine Sulfate (Morphine 4 Mg/Ml Syringe) 4 mg IVPUSH ONETIME ONE Stop: 03/25/21 15:44 Last Admin: 03/25/21 17:20 Dose: 4 mg Documented by: Ondansetron HCl (Ondansetron 4 Mg/2 Ml Sdv) 8 mg IV ONETIME ONE Stop: 03/25/21 15:42 Last Admin: 03/25/21 17:22 Dose: 8 mg Documented by: Potassium Chloride (Potassium Chloride 10 Meq Tab.Er) 40 meq PO ONETIME ONE Stop: 03/26/21 09:01 Last Admin: 03/26/21 09:32 Dose: 40 meq Documented by: - Exam Quality Assessment: No: Supplemental Oxygen General: Alert, Oriented, No Acute Distress HEENT: EOMI Extremities: Normal Inspection Skin: Warm, Dry Neurological: No New Focal Deficit Psy/Mental Status: Alert, Normal Affect - Patient Data Lab Results Last 24 hrs: Laboratory Results - last 24 hr 03/27/21 03/27/21 Range/Units 06:40 06:40 WBC 3.6 L (5.0-10.0) 10^3/uL RBC 3.64 L (4.2-5.4) 10^6/uL Hgb 9.9 L (12.0-16.0) g/dL Hct 31.3 L (37.0-47.0) % MCV 86.0 (80-100) fL MCH 27.2 (27.0-34.0) pg MCHC 31.6 L (33.0-35.0) g/dL Plt Count 177 (150-450) 10^3/uL Neut % (Auto) 44.3 (42.2-75.2) % Lymph % (Auto) 45.7 (20.5-50.1) % Johnston % (Auto) 8.3 H (2-8) % Eos % (Auto) 1.7 (1.0-3.0) % Baso % (Auto) 0.0 (0.0-1.0) % Sodium 141 (136-145) mmol/L Potassium 3.1 L (3.5-5.1) mmol/L Chloride 106 (98-107) mmol/L Carbon Dioxide 28 (21-32) mmol/L Anion Gap 10.1 (7-13) mEq/L BUN 7 (7-18) mg/dL Creatinine 0.58 (0.55-1.02) mg/dL Est Cr Clr Drug Dosing 114.67 mL/min Estimated GFR (MDRD) > 60 Glucose 88 (70-99) mg/dL Calcium 7.7 L (8.5-10.1) mg/dL Result Diagrams: 03/27/21 06:40 03/27/21 06:40 Sepsis Event Note - Evaluation Sepsis Screening Result: No Definite Risk - Focused Exam Vital Signs: Vital Signs Temp Pulse Resp BP Pulse Ox 03/27/21 07:00 97.1 F 76 18 107/88 92 L 03/27/21 03:00 97.6 F 76 16 107/69 91 L - Problem List Review Problem List Initiated/Reviewed/Updated: No - My Orders Last 24 Hours: My Active Orders 03/26/21 09:45 Morphine 4 mg IVPUSH Q6H PRN 03/26/21 16:59 Promethazine [Phenergan] 12.5 mg IM Q6H PRN 03/27/21 08:44 Patient Status [ADT] Routine 03/27/21 09:00 Potassium Chloride [Klor-Con 10] 40 meq PO DAILY 03/28/21 05:11 BASIC METABOLIC PANEL,BMP [CHEM] AM CBC WITH AUTO DIFF [HEME] AM 03/29/21 05:11 BASIC METABOLIC PANEL,BMP [CHEM] AM CBC WITH AUTO DIFF [HEME] AM 03/30/21 05:11 BASIC METABOLIC PANEL,BMP [CHEM] AM CBC WITH AUTO DIFF [HEME] AM - Plan Plan:: intractable symptoms of gastroenteritis due to COVID/ hypovolemia Decrease IVF fluid and supportive treatment. Hypokalemia: replace. Depression? : continue home medications. Recent cholecystectomy; no active issues. DVT prophylaxis with Lovenox
[2021-03-27] MEDS: Acetaminophen 325 MG Tab PO PRN ×3 (11:00→22:33)
[2021-03-27] MEDS: Promethazine 25 MG/ML SDV IM PRN (11:23)
[2021-03-28] MEDS: Lactated Ringers 1,000 ML IV SCH ×2 (06:41→20:33)
[2021-03-28 06:44] LABS: ANION GAP 9.4 mEq/L (7-13); CHLORIDE,CL 106 mmol/L (98-107); SODIUM,NA 143 mmol/L (136-145)
[2021-03-28] MEDS: Acetaminophen 325 MG Tab PO PRN ×4 (08:52→22:04)
[2021-03-28] MEDS: Potassium Chloride 10 MEQ Tab.ER PO SCH (08:54)
[2021-03-28] MEDS: Enoxaparin 40 MG/0.4 ML Syringe SUBCUT SCH (08:55)
[2021-03-28] MEDS: Promethazine 25 MG/ML SDV IM PRN (08:56)
[2021-03-28] MEDS: buPROPion 150 MG Tab.ER PO SCH (09:00)
[2021-03-28] MEDS: Gabapentin 100 MG Cap PO SCH (09:00)
--- NOTE | 2021-03-28 11:56 | PCM.PN ---
- General Info Date of Service: 03/28/21 Subjective Update: Still not feeling well. Vomited yesterday. myalgia. still with diarrhea. feels mildly SOB. - Review of Systems General: Reports: Malaise. Denies: Fever Pulmonary: Reports: Shortness of Breath Gastrointestinal: Reports: Diarrhea, Nausea. Denies: Abdominal Pain Skin: Reports: No Symptoms Neurological: Reports: No Symptoms, Confusion Psychiatric: Reports: No Symptoms, Confusion - Patient Data Vitals - Most Recent: Last Vital Signs Temp 99.3 F 03/28/21 07:00 Pulse 72 03/28/21 07:00 Resp 22 H 03/28/21 07:00 BP 115/67 03/28/21 07:00 Pulse Ox 95 03/28/21 07:00 Weight - Most Recent: 218 lb 12.8 oz I&O - Last 24 Hours: Intake & Output 03/27/21 03/28/21 03/28/21 22:59 06:59 14:59 Intake Total 5297 Output Total 0 Balance 5297 Lab Results Last 24 Hours: Laboratory Results - last 24 hr 03/28/21 03/28/21 03/28/21 Range/Units 06:15 06:15 06:15 WBC 5.9 (5.0-10.0) 10^3/uL RBC 3.67 L (4.2-5.4) 10^6/uL Hgb 10.1 L (12.0-16.0) g/dL Hct 31.7 L (37.0-47.0) % MCV 86.4 (80-100) fL MCH 27.5 (27.0-34.0) pg MCHC 31.9 L (33.0-35.0) g/dL Plt Count 180 (150-450) 10^3/uL Neut % (Auto) 62.2 (42.2-75.2) % Lymph % (Auto) 24.8 (20.5-50.1) % [place] % (Auto) 10.8 H (2-8) % Eos % (Auto) 2.2 (1.0-3.0) % Baso % (Auto) 0.0 (0.0-1.0) % Sodium 143 (136-145) mmol/L Potassium 3.4 L (3.5-5.1) mmol/L Chloride 106 (98-107) mmol/L Carbon Dioxide 31 (21-32) mmol/L Anion Gap 9.4 (7-13) mEq/L BUN 6 L (7-18) mg/dL Creatinine 0.64 (0.55-1.02) mg/dL Est Cr Clr Drug Dosing 103.92 mL/min Estimated GFR (MDRD) > 60 Glucose 93 (70-99) mg/dL Calcium 7.8 L (8.5-10.1) mg/dL Total Bilirubin 0.3 (0.2-1.0) mg/dL Direct Bilirubin 0.1 (0.0-0.2) mg/dL Indirect Bilirubin 0.2 AST 67 H (15-37) U/L ALT 58 (14-59) U/L Alkaline Phosphatase 151 H (46-116) U/L Total Protein 5.6 L (6.4-8.2) g/dL Albumin 2.5 L (3.4-5.0) g/dL Globulin 3.1 Albumin/Globulin Ratio 0.81 Med Orders - Current: Current Medications Acetaminophen (Acetaminophen 325 Mg Tab) 650 mg PO Q4H PRN PRN Reason: Pain (Mild 1-3)/fever Last Admin: 03/28/21 08:52 Dose: 650 mg Documented by: Bupropion HCl (Bupropion 150 Mg Tab.Er) 300 mg PO DAILY [facility] Last Admin: 03/28/21 09:00 Dose: Not Given Documented by: Enoxaparin Sodium (Enoxaparin 40 Mg/0.4 Ml Syringe) 40 mg SUBCUT DAILY [facility] Last Admin: 03/28/21 08:55 Dose: 40 mg Documented by: Gabapentin (Gabapentin 100 Mg Cap) 200 mg PO DAILY [facility] Last Admin: 03/28/21 09:00 Dose: Not Given Documented by: Lactated Ringer's (Ringers, Lactated) 1,000 mls @ 75 mls/hr IV ASDIRECTED [facility] Last Admin: 03/28/21 06:41 Dose: 75 mls/hr Documented by: Ibuprofen (Ibuprofen 400 Mg Tab) 400 mg PO Q4H PRN PRN Reason: Pain Loperamide HCl (Loperamide 2 Mg Cap) 4 mg PO Q6H PRN PRN Reason: Diarrhea Last Admin: 03/27/21 11:00 Dose: 4 mg Documented by: Morphine Sulfate (Morphine 4 Mg/Ml Syringe) 4 mg IVPUSH Q6H PRN PRN Reason: Pain (severe 7-10) Last Admin: 03/27/21 00:17 Dose: 4 mg Documented by: Ondansetron HCl (Ondansetron 4 Mg/2 Ml Sdv) 4 mg IVPUSH Q6H PRN PRN Reason: Nausea/Vomiting Last Admin: 03/27/21 08:26 Dose: 4 mg Documented by: Potassium Chloride (Potassium Chloride 10 Meq Tab.Er) 40 meq PO DAILY [facility] Last Admin: 03/28/21 08:54 Dose: 40 meq Documented by: Promethazine HCl (Promethazine 25 Mg/Ml Sdv) 12.5 mg IM Q6H PRN PRN Reason: Nausea Last Admin: 03/28/21 08:56 Dose: 12.5 mg Documented by: Sodium Chloride (Sodium Chloride 0.9% 10 Ml Syringe) 10 ml FLUSH ASDIRECTED PRN PRN Reason: Keep Vein Open Discontinued Medications Diphenoxylate HCl/Atropine (Atropine/Diphenoxylate 0.025-2.5 Mg Tab) 2 tab PO ONETIME ONE Stop: 03/25/21 15:43 Last Admin: 03/25/21 17:23 Dose: 2 tab Documented by: Famotidine (Famotidine 20 Mg/2 Ml Sdv) 20 mg IVPUSH ONETIME ONE Stop: 03/25/21 17:22 Last Admin: 03/25/21 18:00 Dose: 20 mg Documented by: Sodium Chloride (Normal Saline) 1,000 mls @ 999 mls/hr IV .BOLUS ONE Stop: 03/25/21 16:42 Last Admin: 03/25/21 17:20 Dose: 999 mls/hr Documented by: Magnesium Sulfate 2 gm/ Premix 50 mls @ 25 mls/hr IV ONETIME ONE Stop: 03/25/21 19:18 Last Admin: 03/25/21 19:33 Dose: 25 mls/hr Documented by: Potassium Chloride 10 meq/ (Premix) 100 mls @ 100 mls/hr IV ONETIME ONE Stop: 03/25/21 18:18 Last Admin: 03/25/21 22:14 Dose: 100 mls/hr Documented by: Sodium Chloride (Normal Saline) 1,000 mls @ 999 mls/hr IV .BOLUS ONE Stop: 03/25/21 18:21 Last Admin: 03/25/21 19:33 Dose: 999 mls/hr Documented by: Lidocaine HCl (Lidocaine 1% 30 Ml Sdv) 1 ml INJECT ONETIME ONE Stop: 03/25/21 17:21 Last Admin: 03/25/21 22:14 Dose: 1 ml Documented by: Morphine Sulfate (Morphine 4 Mg/Ml Syringe) 4 mg IVPUSH ONETIME ONE Stop: 03/25/21 15:44 Last Admin: 03/25/21 17:20 Dose: 4 mg Documented by: Ondansetron HCl (Ondansetron 4 Mg/2 Ml Sdv) 8 mg IV ONETIME ONE Stop: 03/25/21 15:42 Last Admin: 03/25/21 17:22 Dose: 8 mg Documented by: Potassium Chloride (Potassium Chloride 10 Meq Tab.Er) 40 meq PO ONETIME ONE Stop: 03/26/21 09:01 Last Admin: 03/26/21 09:32 Dose: 40 meq Documented by: - Exam Quality Assessment: No: Supplemental Oxygen General: Alert, Oriented HEENT: EOMI Extremities: Normal Inspection, No Pedal Edema Skin: Warm Neurological: No New Focal Deficit Psy/Mental Status: Alert, Normal Affect, Normal Mood - Patient Data Lab Results Last 24 hrs: Laboratory Results - last 24 hr 03/28/21 03/28/21 03/28/21 Range/Units 06:15 06:15 06:15 WBC 5.9 (5.0-10.0) 10^3/uL RBC 3.67 L (4.2-5.4) 10^6/uL Hgb 10.1 L (12.0-16.0) g/dL Hct 31.7 L (37.0-47.0) % MCV 86.4 (80-100) fL MCH 27.5 (27.0-34.0) pg MCHC 31.9 L (33.0-35.0) g/dL Plt Count 180 (150-450) 10^3/uL Neut % (Auto) 62.2 (42.2-75.2) % Lymph % (Auto) 24.8 (20.5-50.1) % [place] % (Auto) 10.8 H (2-8) % Eos % (Auto) 2.2 (1.0-3.0) % Baso % (Auto) 0.0 (0.0-1.0) % Sodium 143 (136-145) mmol/L Potassium 3.4 L (3.5-5.1) mmol/L Chloride 106 (98-107) mmol/L Carbon Dioxide 31 (21-32) mmol/L Anion Gap 9.4 (7-13) mEq/L BUN 6 L (7-18) mg/dL Creatinine 0.64 (0.55-1.02) mg/dL Est Cr Clr Drug Dosing 103.92 mL/min Estimated GFR (MDRD) > 60 Glucose 93 (70-99) mg/dL Calcium 7.8 L (8.5-10.1) mg/dL Total Bilirubin 0.3 (0.2-1.0) mg/dL Direct Bilirubin 0.1 (0.0-0.2) mg/dL Indirect Bilirubin 0.2 AST 67 H (15-37) U/L ALT 58 (14-59) U/L Alkaline Phosphatase 151 H (46-116) U/L Total Protein 5.6 L (6.4-8.2) g/dL Albumin 2.5 L (3.4-5.0) g/dL Globulin 3.1 Albumin/Globulin Ratio 0.81 Result Diagrams: 03/28/21 06:15 03/28/21 06:15 Sepsis Event Note - Evaluation Sepsis Screening Result: No Definite Risk - Focused Exam Vital Signs: Vital Signs Temp Pulse Resp BP Pulse Ox 03/28/21 07:00 99.3 F 72 22 H 115/67 95 03/28/21 03:00 98.2 F 73 18 104/47 L 93 L - Problem List Review Problem List Initiated/Reviewed/Updated: No - My Orders Last 24 Hours: My Active Orders 03/27/21 Dinner Soft Diet [DIET] 03/28/21 11:07 Chest 1V Frontal [CR] Urgent 03/29/21 05:11 BASIC METABOLIC PANEL,BMP [CHEM] AM CBC WITH AUTO DIFF [HEME] AM 03/30/21 05:11 BASIC METABOLIC PANEL,BMP [CHEM] AM CBC WITH AUTO DIFF [HEME] AM - Plan Plan:: intractable symptoms of gastroenteritis due to COVID/ hypovolemia Decrease IVF fluid and continue supportive treatment. Hypokalemia: replace. CXR Depression? : continue home medications. mildly abn LFTS: possibly due recent cholecystectomy. DVT prophylaxis with Lovenox
--- NOTE | 2021-03-28 13:01 | CR ---
PROCEDURE INFORMATION: Exam: XR Chest Exam date and time: 03/28/2021 11:25 AM Age: 45 years old Clinical indication: Shortness of breath; Additional info: Shortness of breath , covid TECHNIQUE: Imaging protocol: XR of the chest. Views: 1 view. COMPARISON: No relevant prior studies available. FINDINGS: Lungs: Patchy airspace opacities in both lungs suspicious for multifocal pneumonia. Pleural spaces: Unremarkable. No pleural effusion. No pneumothorax. Heart/Mediastinum: Unremarkable. No cardiomegaly. Bones/joints: Unremarkable. IMPRESSION: Multifocal pneumonitis
[2021-03-29] MEDS: Promethazine 25 MG/ML SDV IM PRN (04:04)
[2021-03-29] MEDS: Morphine 4 MG/ML Syringe IVPUSH PRN (04:07)
[2021-03-29 07:05] LABS: ANION GAP 11.7 mEq/L (7-13); CHLORIDE,CL 103 mmol/L (98-107); SODIUM,NA 141 mmol/L (136-145)
[2021-03-29] MEDS: Potassium Chloride 10 MEQ Tab.ER PO SCH (08:26)
[2021-03-29] MEDS: Enoxaparin 40 MG/0.4 ML Syringe SUBCUT SCH (08:26)
[2021-03-29] MEDS: buPROPion 150 MG Tab.ER PO SCH (08:28)
[2021-03-29] MEDS: Gabapentin 100 MG Cap PO SCH (08:28)
--- NOTE | 2021-03-29 10:32 | PCM.DCSUM1 ---
Discharge Summary - Hospital Course Free Text/Narrative:: Patient presents to ED stating that she was diagnosed with COVID on 03/22/21. She presents with intractable nausea, vomiting and diarrhea, fevers, chills and generalized Body aches. Denies cough or chest pain. She has not been able to keep down her nausea medication. She has a history of pancreatitis, but has not had abdominal pain associated with the nausea and vomiting. reports h/o cholecystectomy 2 weeks ago. During her stay she was treated for the symptoms of gastroenteritis due to COVID with IVF fluid and supportive treatment. Hypokalemia: replace. CXR: showed B infiltrates but POX maintained at 95% on RA. mildly abn LFTS: possibly due recent cholecystectomy. Her symptoms are much improved and had only mild nausea and her diarrhea has resolved. - Discharge Data Discharge Date: 03/29/21 Discharge Disposition: Home, Self-Care 01 Condition: Good - Referral to Home Health Primary Care Physician: PCP None - Patient Instructions Diet: Usual Diet as Tolerated Fluid Restriction: 2000 mL Activity: As Tolerated Notify Provider of: Fever, Increased Pain, Swelling and Redness, Drainage, Nausea and/or Vomiting Other/Special Instructions: To complate the isolation duration for total 10 days from diagnosis. May return to work on Tuesday. - Discharge Plan *PRESCRIPTION DRUG MONITORING PROGRAM REVIEWED*: No *COPY OF PRESCRIPTION DRUG MONITORING REPORT IN PATIENT KIMBERLY: No Prescriptions/Med Rec: Naproxen 500 mg PO BID #15 tablet Promethazine [Phenergan] 25 mg PO Q6H PRN 5 Days #15 tab PRN Reason: Vomiting Home Medications: Home Meds Amphetamine Sulfate 30 mg PO BID 04/19/20 [History] Gabapentin [Neurontin] 100 mg PO BID 04/19/20 [History] Loratadine/Pseudoephedrine [Allergy Relief D 12-Hour Tab] 1 each PO DAILY 04/19/20 [History] buPROPion HCL [Bupropion Xl] 300 mg PO DAILY 03/22/21 [History] Acetaminophen [Tylenol] 650 mg PO Q4H PRN tablet 03/29/21 [Rx] Naproxen 500 mg PO BID #15 tablet 03/29/21 [Rx] Promethazine [Phenergan] 25 mg PO Q6H PRN 5 Days #15 tab 03/29/21 [Rx] Referrals: Ana Rosa Lester PA-C [Ordering Only Provider] - - Discharge Summary/Plan Comment DC Time >30 min.: No Total # of Minutes for Discharge Time: 25 min - General Info Date of Service: 03/29/21 Functional Status: Reports: Pain Controlled, Tolerating Diet (full liquids ) - Review of Systems General: Reports: Malaise. Denies: Fever Pulmonary: Denies: Shortness of Breath, Cough Cardiovascular: Denies: Chest Pain Gastrointestinal: Reports: Nausea. Denies: Abdominal Pain, Diarrhea, Vomiting Neurological: Reports: No Symptoms Psychiatric: Reports: No Symptoms - Patient Data Vitals - Most Recent: Last Vital Signs Temp 98.5 F 03/29/21 08:00 Pulse 75 03/29/21 08:00 Resp 18 03/29/21 08:00 BP 114/70 03/29/21 08:00 Pulse Ox 96 03/29/21 08:00 Weight - Most Recent: 220 lb I&O - Last 24 hours: Intake & Output 03/28/21 03/29/21 03/29/21 22:59 06:59 14:59 Intake Total 500 120 Balance 500 120 Lab Results - Last 24 hrs: Laboratory Results - last 24 hr 03/29/21 03/29/21 Range/Units 06:37 06:37 WBC 7.8 (5.0-10.0) 10^3/uL RBC 3.85 L (4.2-5.4) 10^6/uL Hgb 10.5 L (12.0-16.0) g/dL Hct 33.0 L (37.0-47.0) % MCV 85.7 (80-100) fL MCH 27.3 (27.0-34.0) pg MCHC 31.8 L (33.0-35.0) g/dL Plt Count 252 (150-450) 10^3/uL Neut % (Auto) 70.9 (42.2-75.2) % Lymph % (Auto) 18.6 L (20.5-50.1) % [place] % (Auto) 8.9 H (2-8) % Eos % (Auto) 1.5 (1.0-3.0) % Baso % (Auto) 0.1 (0.0-1.0) % Sodium 141 (136-145) mmol/L Potassium 3.7 (3.5-5.1) mmol/L Chloride 103 (98-107) mmol/L Carbon Dioxide 30 (21-32) mmol/L Anion Gap 11.7 (7-13) mEq/L BUN 8 (7-18) mg/dL Creatinine 0.65 (0.55-1.02) mg/dL Est Cr Clr Drug Dosing 102.32 mL/min Estimated GFR (MDRD) > 60 Glucose 103 H (70-99) mg/dL Calcium 8.2 L (8.5-10.1) mg/dL Med Orders - Current: Current Medications Acetaminophen (Acetaminophen 325 Mg Tab) 650 mg PO Q4H PRN PRN Reason: Pain (Mild 1-3)/fever Last Admin: 03/28/21 22:04 Dose: 650 mg Documented by: Bupropion HCl (Bupropion 150 Mg Tab.Er) 300 mg PO DAILY [facility] Last Admin: 03/29/21 08:28 Dose: Not Given Documented by: Enoxaparin Sodium (Enoxaparin 40 Mg/0.4 Ml Syringe) 40 mg SUBCUT DAILY [facility] Last Admin: 03/29/21 08:26 Dose: 40 mg Documented by: Gabapentin (Gabapentin 100 Mg Cap) 200 mg PO DAILY [facility] Last Admin: 03/29/21 08:28 Dose: Not Given Documented by: Lactated Ringer's (Ringers, Lactated) 1,000 mls @ 75 mls/hr IV ASDIRECTED [facility] Last Admin: 03/28/21 20:33 Dose: 75 mls/hr Documented by: Ibuprofen (Ibuprofen 400 Mg Tab) 400 mg PO Q4H PRN PRN Reason: Pain Loperamide HCl (Loperamide 2 Mg Cap) 4 mg PO Q6H PRN PRN Reason: Diarrhea Last Admin: 03/27/21 11:00 Dose: 4 mg Documented by: Morphine Sulfate (Morphine 4 Mg/Ml Syringe) 4 mg IVPUSH Q6H PRN PRN Reason: Pain (severe 7-10) Last Admin: 03/29/21 04:07 Dose: 4 mg Documented by: Ondansetron HCl (Ondansetron 4 Mg/2 Ml Sdv) 4 mg IVPUSH Q6H PRN PRN Reason: Nausea/Vomiting Last Admin: 03/27/21 08:26 Dose: 4 mg Documented by: Potassium Chloride (Potassium Chloride 10 Meq Tab.Er) 40 meq PO DAILY [facility] Last Admin: 03/29/21 08:26 Dose: 40 meq Documented by: Promethazine HCl (Promethazine 25 Mg/Ml Sdv) 12.5 mg IM Q6H PRN PRN Reason: Nausea Last Admin: 03/29/21 04:04 Dose: 12.5 mg Documented by: Sodium Chloride (Sodium Chloride 0.9% 10 Ml Syringe) 10 ml FLUSH ASDIRECTED PRN PRN Reason: Keep Vein Open Discontinued Medications Diphenoxylate HCl/Atropine (Atropine/Diphenoxylate 0.025-2.5 Mg Tab) 2 tab PO ONETIME ONE Stop: 03/25/21 15:43 Last Admin: 03/25/21 17:23 Dose: 2 tab Documented by: Famotidine (Famotidine 20 Mg/2 Ml Sdv) 20 mg IVPUSH ONETIME ONE Stop: 03/25/21 17:22 Last Admin: 03/25/21 18:00 Dose: 20 mg Documented by: Sodium Chloride (Normal Saline) 1,000 mls @ 999 mls/hr IV .BOLUS ONE Stop: 03/25/21 16:42 Last Admin: 03/25/21 17:20 Dose: 999 mls/hr Documented by: Magnesium Sulfate 2 gm/ Premix 50 mls @ 25 mls/hr IV ONETIME ONE Stop: 03/25/21 19:18 Last Admin: 03/25/21 19:33 Dose: 25 mls/hr Documented by: Potassium Chloride 10 meq/ (Premix) 100 mls @ 100 mls/hr IV ONETIME ONE Stop: 03/25/21 18:18 Last Admin: 03/25/21 22:14 Dose: 100 mls/hr Documented by: Sodium Chloride (Normal Saline) 1,000 mls @ 999 mls/hr IV .BOLUS ONE Stop: 03/25/21 18:21 Last Admin: 03/25/21 19:33 Dose: 999 mls/hr Documented by: Lidocaine HCl (Lidocaine 1% 30 Ml Sdv) 1 ml INJECT ONETIME ONE Stop: 03/25/21 17:21 Last Admin: 03/25/21 22:14 Dose: 1 ml Documented by: Morphine Sulfate (Morphine 4 Mg/Ml Syringe) 4 mg IVPUSH ONETIME ONE Stop: 03/25/21 15:44 Last Admin: 03/25/21 17:20 Dose: 4 mg Documented by: Ondansetron HCl (Ondansetron 4 Mg/2 Ml Sdv) 8 mg IV ONETIME ONE Stop: 03/25/21 15:42 Last Admin: 03/25/21 17:22 Dose: 8 mg Documented by: Potassium Chloride (Potassium Chloride 10 Meq Tab.Er) 40 meq PO ONETIME ONE Stop: 03/26/21 09:01 Last Admin: 03/26/21 09:32 Dose: 40 meq Documented by: - Exam Quality Assessment: Denies: Supplemental Oxygen General: Reports: Alert, Oriented Neck: Reports: Supple Lungs: Reports: Normal Respiratory Effort (Female) Exam: Deferred Extremities: Normal Inspection Skin: Reports: Warm, Dry Neurological: Reports: No New Focal Deficit Psy/Mental Status: Reports: Alert, Normal Affect
== END 2021-03-29 14:20 | disposition home or self-care (01) | DRG 137 ==
LOC: DL.ED 14:25 → UNDOADMOB 17:51 → DL.MS 17:51 → OBSVTOIN 03-27 08:44 → DL.MS 03-27 21:00
PROVIDERS: ADMIT Internal Medicine; ATTEND Internal Medicine
DX: U07.1 COVID-19 (principal); K52.9 Noninfective gastroenteritis and colitis, unspecified; E87.6 Hypokalemia; R74.01 Elevation of levels of liver transaminase levels; F41.9 Anxiety disorder, unspecified; F32.A Depression, unspecified; E66.9 Obesity, unspecified; F17.210 Nicotine dependence, cigarettes, uncomplicated; F90.9 Attention-deficit hyperactivity disorder, unspecified type; G62.9 Polyneuropathy, unspecified; Z79.899 Other long term (current) drug therapy; Z88.1 Allergy status to other antibiotic agents; Z88.5 Allergy status to narcotic agent; Z88.0 Allergy status to penicillin; Z88.8 Allergy status to other drugs, medicaments and biological substances
CPT/HCPCS: 36415; 71045; 80048; 80053; 80076; 82150; 83605; 83690; 83735; 85025; 86140; 96372; 96374; 96375; 96376; 99284-25; A9270-GY; G0378; J1650; J2270; J2405; J2550; J3475; J3480; J3490; J7030; J7120

== ENCOUNTER 2022-12-05 16:27 | Emergency (ER) | payer BC ==
[2022-12-05] MEDS ORDERED: Ondansetron 4 MG/2 ML SDV IVPUSH ONE (18:13)
[2022-12-05] MEDS ORDERED: Sodium Chloride 0.9% 10 ML Syringe FLUSH PRN (18:13)
[2022-12-05] MEDS ORDERED: Sodium Chloride 0.9% 1,000 ML IV ONE (18:13)
[2022-12-05 18:32] LABS: BASOPHILS PERCENT AUTO 0.1 % (0.0-1.0); EOSINOPHILS PERCENT AUTO 0.4 % (1.0-3.0); HEMATOCRIT 40.6 % (37.0-47.0); HEMOGLOBIN 13.3 g/dL (12.0-16.0); LYMPHOCYTES PERCENT AUTO 13.7 % (20.5-50.1); MEAN CORPUSCULAR HEMOGLOBIN 28.2 pg (27.0-34.0); MEAN CORPUSCULAR HGB CONC 32.8 g/dL (33.0-35.0); MONOCYTES PERCENT AUTO 6.5 % (2-8); NEUTROPHILS PERCENT AUTO 79.3 % (42.2-75.2); PLATELET COUNT,PLT 444 10^3/uL (150-450); RED BLOOD CELL COUNT 4.72 10^6/uL (4.2-5.4); WHITE BLOOD CELL COUNT,WBC 18.3 10^3/uL (5.0-10.0)
[2022-12-05 18:52] LABS: INR 0.9 (0.9-1.2); PROTHROMBIN TIME 9.2 SEC (9.0-12.0); PTT,PARTIAL THROMBOPLSTIN TIME 25.4 SEC (22.0-34.0)
[2022-12-05 19:02] LABS: LACTIC ACID 1.3 mmol/L (0.4-2.0)
[2022-12-05 19:08] LABS: A/G RATIO 1.1; ALANINE AMINOTRANSFERASE,ALT 21 U/L (14-59); ALBUMIN 4.2 g/dL (3.4-5.0); ALKALINE PHOSPHATASE 133 U/L (46-116); AMYLASE 59 U/L (25-115); ANION GAP 14.7 mEq/L (7-13); ASPARTATE AMNIOTRANSFERASE,AST 15 U/L (15-37); BILIRUBIN TOTAL 0.6 mg/dL (0.2-1.0); BLOOD UREA NITROGEN,BUN 15 mg/dL (7-18); BUN/CREATININE RATIO 14.3 (No establ ref range); C-REACTIVE PROTEIN 0.7 mg/dL (0.0-0.9); CALCIUM 9.2 mg/dL (8.5-10.1); CARBON DIOXIDE,CO2 26 mmol/L (21-32); CHLORIDE,CL 101 mmol/L (98-107); CREATININE 1.05 mg/dL (0.55-1.02); EST CRCL DRUG DOSING (CG) 52.39 mL/min; ESTIMATED GFR 66 mL/min (>=60); GLUCOSE RANDOM 127 mg/dL (70-99); LIPASE 95 U/L (73-393); PHOSPHORUS 3.8 mg/dL (2.6-4.7); POTASSIUM,K 3.7 mmol/L (3.5-5.1); SODIUM,NA 138 mmol/L (136-145); TSH ULTRASENSITIVE 1.98 uIU/mL (0.36-3.74)
[2022-12-05 20:13] LABS: APPEARANCE,URINE CLEAR (CLEAR); BILIRUBIN,URINE SMALL (NEGATIVE); COLOR,URINE YELLOW (YELLOW); GLUCOSE,URINE NEGATIVE (NEGATIVE); KETONES,URINE 40 (NEGATIVE); LEUKOCYTE ESTERASE,URINE NEGATIVE (NEGATIVE); NITRITE,URINE NEGATIVE (NEGATIVE); OCCULT BLOOD,URINE NEGATIVE (NEGATIVE); PROTEIN,URINE 100 (NEGATIVE)
[2022-12-05 20:38] LABS: BACTERIA,URINE MODERATE /HPF (0-FEW/HPF); EPITHELIAL CELLS,URINE MODERATE /HPF (NOT SEEN); MUCUS,URINE MODERATE /LPF (NOT SEEN); RBC,URINE 0-5 /HPF (0-5)
[2022-12-05] MEDS ORDERED: GI Cocktail Oral Solution 30 ML PO ONE (21:07)
[2022-12-05] MEDS ORDERED: Take Home: Ondansetron 4 MG Tab.DIS, 5 Tab Pack PO ONE ×2 (21:46→22:11)
== END 2022-12-05 21:41 | disposition home or self-care (01) ==
LOC: DL.ED 16:27
DX: K52.9 Noninfective gastroenteritis and colitis, unspecified (principal); R11.2 Nausea with vomiting, unspecified; T50.905A Adverse effect of unspecified drugs, medicaments and biological substances, initial encounter; E66.9 Obesity, unspecified; Z68.38 Body mass index [BMI] 38.0-38.9, adult; Z88.0 Allergy status to penicillin; Z88.5 Allergy status to narcotic agent; Z88.8 Allergy status to other drugs, medicaments and biological substances; Z86.16 Personal history of COVID-19; Z87.891 Personal history of nicotine dependence
CPT/HCPCS: 36415; 80053; 81001; 81025; 82150; 82271; 83605; 83690; 83735; 84100; 84145; 84443; 85025; 85610; 85730; 86140; 96361; 96374; 99283; 99284; A9270; J2405; J7030; Q0162; J3490

== ENCOUNTER 2023-04-23 12:14 | Emergency (ER) | payer BC ==
[2023-04-23] MEDS ORDERED: Acetaminophen 500 MG Tab PO ONE (12:53)
[2023-04-23] MEDS ORDERED: Ketorolac 30 MG/ML SDV IM ONE (12:53)
[2023-04-23 13:26] LABS: INFLUENZA A NAA NEGATIVE (NEGATIVE); INFLUENZA B NAA NEGATIVE (NEGATIVE); RESPIRATORY SYNCYTIAL VIR NAA NEGATIVE (NEGATIVE)
[2023-04-23 13:30] LABS: CORONAVIRUS COVID-19 NAA POSITIVE (NEGATIVE)
== END 2023-04-23 13:44 | disposition home or self-care (01) ==
LOC: DL.ED 12:14
DX: U07.1 COVID-19 (principal); E66.9 Obesity, unspecified; Z68.41 Body mass index [BMI] 40.0-44.9, adult; Z87.891 Personal history of nicotine dependence; Z86.16 Personal history of COVID-19; Z88.0 Allergy status to penicillin; Z88.8 Allergy status to other drugs, medicaments and biological substances; Z88.5 Allergy status to narcotic agent; Z79.899 Other long term (current) drug therapy
CPT/HCPCS: 0241U; 87081; 87430; 96372; 99283; 99284; A9270-GY; J1885